=== PATIENT | male | born 1950 | race Hispanic/Latino ===

== ENCOUNTER 2021-02-20 07:06 | Day surgery (SDC) | payer OTHER, MEDICARE ==
--- NOTE | 2021-02-14 10:48 | RAD REPORT ---
EXAM DESCRIPTION: Anamika Kapoor (2 Views)02/14/2021 10:42 am CLINICAL HISTORY: Preop for hernia repair COMPARISON: 2016 FINDINGS: The lungs appear clear of acute infiltrate. The heart is normal size IMPRESSION: No acute abnormalities displayed
[2021-02-14 10:58] LABS: Absolute Lymphocytes (CBC) 0.7 K/uL (0.7-4.9); Basophils % 0.4 % (0-1.3); Hematocrit 41.1 % (39.6-49.0); Lymphocytes % 16.8 % (15.3-44.8); MPV 8.6 fL (7.6-11.3); RBC Red Blood Cell Count 4.61 M/uL (4.33-5.43)
[2021-02-14 11:07] LABS: BUN Blood Urea Nitrogen 15 mg/dL (7-18); Bicarbonate 27 mmol/L (21-32); Glucose Level 125 mg/dL (74-106); Sodium Level 140 mmol/L (136-145)
--- NOTE | 2021-02-14 12:56 | EKG ---
Test Date: 2021-02-14 Test Time: 09:26:58 Plush Cutter: VALENTIN MEASUREMENT RESULTS: Intervals: Rate: 62 IL: 168 QRSD: 84 QT: 386 QTc: 391 [place]: P: 36 IL: 168 QRS: 55 T: 65 INTERPRETIVE STATEMENTS: Normal sinus rhythm Normal ECG No previous ECG available for comparison Electronically Signed On 02-14-21 12:56:11 CDT by Jorge Fuentes
[2021-02-20] MEDS ORDERED: Ringers Lactate 1,000 ML IV ONE (07:57)
[2021-02-20] MEDS ORDERED: CEFAZOLIN/SWI 1gm 1 GM/10 ML SYR ONE (07:58)
[2021-02-20] MEDS: BUPIVACAINE 0.5% PF 10 ML VIAL ONE ×2 (08:29→10:01)
[2021-02-20] MEDS ORDERED: MIDAZOLAM HCL 2 MG/2 ML INJ ONE (08:44)
[2021-02-20] MEDS ORDERED: FENTANYL CITR 100 MCG/2 ML ONE (08:44)
[2021-02-20] MEDS ORDERED: ROCURONIUM 50 MG/5 ML VIAL IV ONE (08:44)
[2021-02-20] MEDS ORDERED: propofoL 200 MG/20 ML VIAL IV ONE (08:44)
[2021-02-20] MEDS ORDERED: LIDOCAINE 1% MPF 5 ML VIAL ONE (08:44)
[2021-02-20] MEDS ORDERED: KETOROLAC 30 MG/ML INJ ONE (10:00)
[2021-02-20] MEDS ORDERED: ONDANSETRON 4 MG/2 ML VIAL ONE (10:20)
[2021-02-20] MEDS ORDERED: GLYCOPYRROLATE 0.2 MG/ML SYR ONE (10:21)
[2021-02-20] MEDS ORDERED: NEOSTIGMINE 1 MG/ML -5 ML ONE (10:21)
--- NOTE | 2021-02-20 10:26 | P.BOP ---
Preoperative diagnosis: bilateral tender inguinal hernias Postoperative diagnosis: same Primary procedure: Laparoscopic repair bilateral tender inguinal hernias with mesh Cook Syrup Maker: Leatha Fagan) Estimated blood loss: <10cc Specimen: none Findings: bilateral tender inguinal hernias Anesthesia: General Complications: None Implants: medium 3d mesh bilateral Transferred to: Recovery Room Condition: Good
[2021-02-20] MEDS ORDERED: Mastisol Adhesive Liq ONE (10:27)
[2021-02-20 11:14] VITALS: TEMP 96.1
[2021-02-20] MEDS ORDERED: TAMSULOSIN 0.4 MG SR CAP ONE (11:28)
[2021-02-20] MEDS ORDERED: CODEINE 30MG/APAP 300MG TAB ONE (11:28)
[2021-02-20 13:31] VITALS: BP 120/67
[2021-02-20 13:33] VITALS: O2SAT 96
== END 2021-02-20 12:10 | disposition home or self-care (01) ==
LOC: OR 07:06
PROVIDERS: ATTEND Surgery
PROC: 0YUA4JZ Supplement Bilateral Inguinal Region with Synthetic Substitute, Percutaneous Endoscopic Approach (ICD-10-PCS; principal; 2021-02-20 08:30)
DX: K40.20 Bilateral inguinal hernia, without obstruction or gangrene, not specified as recurrent (principal); E78.00 Pure hypercholesterolemia, unspecified; F41.9 Anxiety disorder, unspecified; C61 Malignant neoplasm of prostate; Z20.822 Contact with and (suspected) exposure to COVID-19
CPT/HCPCS: 93005; 85025; 80048; 36415; 71046; 49650; U0002; J2704; J3010; J2710; J0690; J7120; J2405; J2250

== ENCOUNTER 2021-05-11 11:24 | Emergency (ER) | payer OTHER, MEDICARE ==
--- OUTSIDE RECORDS SUMMARY | 2021-05-11 11:43 | XMS REPORT | Continuity of Care Document ---
:1950 Author Organization [facility] t Address [address] [place] [address] Care Team Providers Name Role Phone Joshu_P Attending Clinician Unavailable Joshu_P Admitting Clinician Unavailable Problems This patient has no known problems. Allergies, Adverse Reactions, Alerts This patient has no known allergies or adverse reactions. Medications Ordered Filled Start Stop Current Ordering Indication Dosage Frequency Signature Comments Components Source Medication Medication Date Date Medication? Clinician (SIG) Name Name Lorazepam Lorazepam Yes Wesley [address] [facility] Zocor Zocor Yes Wesley [address] [facility] Procedures This patient has no known procedures. Encounters Start End Encounter Admission Attending Care Care Encounter Source Date/Time Date/Time Type Type Clinicians Facility Department ID 2021-05-06 Outpatient Joshu_P [facility] [id number] [place] 01:05:[facility] 2021-04-04 2021-04-04 [facility] [id number] 2021-02-06 2021-02-06 [facility] [id number] [facility] 2021-02-06 2021-02-06 [facility] [id number] [facility] 2021-01-02 2021-01-02 [facility] [id number] [facility] 2020-10-06 2020-10-06 [facility] [id number] [facility] 2020-10-05 2020-10-05 [facility] [id number] [facility] 2020-10-03 2020-10-03 [facility] [id number] [facility] 2020-10-03 2020-10-03 [facility] [id number] [facility] 2020-08-03 2020-08-03 [facility] [id number] [facility] 2020-07-05 2020-07-05 [facility] [id number] [facility] 2020-07-01 2020-07-01 [facility] [id number] [facility] 2020-06-27 2020-06-27 [facility] [id number] [facility] 2020-06-27 2020-06-27 [facility] [id number] [facility] 2020-03-31 2020-03-31 [facility] [id number] [facility] 2020-03-31 2020-03-31 [facility] [id number] [facility] 2020-01-06 2020-01-06 [id number] [facility] [address] 14:10:00 14:10:00 [facility] 2019-12-30 2019-12-30 [id number] [facility] [address] 11:30:00 11:30:00 [facility] 2019-10-07 2019-10-07 [facility] [id number] [facility] [address] 08:25:00 08:25:00 [facility] ent Clinics Results This patient has no known results.
[2021-05-11 11:59] LABS: Absolute Lymphocytes (CBC) 0.9 K/uL (0.7-4.9); Basophils % 0.5 % (0-1.3); Hematocrit 41.6 % (39.6-49.0); Lymphocytes % 19.8 % (15.3-44.8); MPV 8.4 fL (7.6-11.3); RBC Red Blood Cell Count 4.68 M/uL (4.33-5.43)
--- NOTE | 2021-05-11 12:00 | RAD REPORT ---
EXAM DESCRIPTION: RAD - Chest Single View - 05/11/2021 11:53 am CLINICAL HISTORY: PAIN Chest pain. COMPARISON: Chest Pa And Lat (2 Views) dated 02/14/2021; Chest Pa And Lat (2 Views) dated 11/15/2015 FINDINGS: Portable technique limits examination quality. Mild linear atelectasis is seen in the right lung base. The lungs are otherwise grossly clear. The he art is normal in size. No displaced fractures.
[2021-05-11 12:12] LABS: ALT/SGPT 23 U/L (12-78); AST/SGOT 12 U/L (15-37); Albumin 3.5 g/dL (3.4-5.0); Alkaline Phosphatase 87 U/L (45-117); BUN Blood Urea Nitrogen 14 mg/dL (7-18); Bicarbonate 26 mmol/L (21-32); Bilirubin Direct 0.2 mg/dL (0-0.2); Bilirubin Total 0.7 mg/dL (0.2-1.0); Glucose Level 132 mg/dL (74-106); Magnesium 2.3 mg/dL (1.8-2.4); NT PRO-BNP 27 pg/mL (<125); Potassium 4.4 mmol/L (3.5-5.1); Protein, Total 6.9 g/dL (6.4-8.2); Sodium Level 141 mmol/L (136-145); Troponin (Emerg Dept Use Only) < 0.02 ng/mL (0.0-0.045)
--- NOTE | 2021-05-11 12:18 | RAD REPORT ---
EXAM DESCRIPTION: CT - Head Brain Wo Cont - 05/11/2021 11:58 am CLINICAL HISTORY: NUMBNESS COMPARISON: No comparisons TECHNIQUE: All CT scans are performed using dose optimization technique as appropriate and may inclu de automated exposure control or mA/KV adjustment according to patient size. FINDINGS: No intracranial hemorrhage, hydrocephalus or extra-axial fluid collection.No areas of brai n edema or evidence of midline shift. The paranasal sinuses and mastoids are clear. The calvarium is intact. IMPRESSION: No acute intracranial abnormality.
--- NOTE | 2021-05-11 13:06 | ER ---
Nurse's Notes [facility] Name: Karel Malik Age: 70 yrs Sex: Male : 1950 Arrival Date: 05/11/2021 Time: 11:25 Bed 5 Private MD: Wesley Garcia Diagnosis: Transient cerebral ischemic attack, unspecified Presentation: 05/11 11:36 Chief complaint: Patient states: woke up with right leg numbness, felt like it was iw asleep, is better now, sometimes has intermittent numbness in his right shoulder for past month , denies weakness. Coronavirus screen: At this time, the client does not indicate any symptoms associated with coronavirus-19. Ebola Screen: Patient negative for fever greater than or equal to 101.5 degrees Fahrenheit, and additional compatible Ebola Virus Disease symptoms Patient denies exposure to infectious person. Patient denies travel to an Ebola-affected area in the 21 days before illness onset. No symptoms or risks identified at this time. Initial Sepsis Screen: Does the patient meet any 2 criteria? No. Patient's initial sepsis screen is negative. Does the patient have a suspected source of infection? No. Patient's initial sepsis screen is negative. Risk Assessment: Do you want to hurt yourself or someone else? Patient reports no desire to harm self or others. Onset of symptoms was May 11, 2021. 11:36 Method Of Arrival: Ambulatory iw 11:36 Acuity: SHO 3 iw Triage Assessment: 11:45 General: Appears in no apparent distress. comfortable, Behavior is calm, cooperative, bp appropriate for age. Pain: Denies pain. EENT: No deficits noted. Neuro: Level of Consciousness is awake, alert, obeys commands, Oriented to Appropriate for age Moves all extremities. Full function Gait is steady. Cardiovascular: No deficits noted. Respiratory: No deficits noted. GI: No signs and/or symptoms were reported involving the gastrointestinal system. : No signs and/or symptoms were reported regarding the genitourinary system. Derm: No deficits noted. Musculoskeletal: Reports weakness in right leg NOW RESOLVED. Historical: - Allergies: 11:38 No Known Allergies; iw - PMHx: 11:38 Hypercholesterolemia; iw - PSHx: 11:38 hernia; iw - Immunization history:: Client reports receiving the 2nd dose of the Covid vaccine. - Social history:: Smoking status: Patient denies any tobacco usage or history of. Screenin:45 Abuse screen: Denies threats or abuse. Denies injuries from another. Nutritional bp screening: No deficits noted. Tuberculosis screening: No symptoms or risk factors identified. Fall Risk None identified. Assessment: 11:45 General: SEE TRIAGE NOTE. bp 12:46 Reassessment: No changes from previously documented assessment. Patient and/or family bp updated on plan of care and expected duration. Pain level reassessed. ALL CURRENT ORDERS COMPLETE. 13:20 Reassessment: PT D/C HOME AMBULATORY WITH FAMILY, DX WITH TIA. bp Vital Signs: 11:36 BP 125 / 72; Pulse 71; Resp 16; Temp 98.2; Pulse Ox 96% on R/A; Weight 66.22 kg; Height iw 5 ft. 3 in. (160.02 cm); 12:45 BP 115 / 69; Pulse 64; Resp 16; Pulse Ox 96% ; bp 13:20 BP 124 / 78; Pulse 62; Resp 17; Pulse Ox 96% ; bp 11:36 Body Mass Index 25.86 (66.22 kg, 160.02 cm) iw NIH Stroke Scale Scores: 11:47 NIHSS Score: 0 jr8 ED Course: 11:25 Patient arrived in ED. am2 11:26 Wesley Garcia DO is Private Physician. am2 11:29 Christophe Burns PA is PHCP. jr8 11:29 Obdulio Zhang MD is Attending Physician. jr8 11:38 Triage completed. iw 11:39 Arm band placed on. iw 11:44 Avery Moran, MIR is Primary Nurse. bp 11:45 Patient has correct armband on for positive identification. Allergy band placed. Call bp light in reach. Side rails up X 1. 11:45 Inserted saline lock: 20 gauge in right forearm, using aseptic technique. Blood bp collected. 11:54 XRAY Chest (1 view) In Process Unspecified. EDMS 11:57 CT Head Brain wo Cont In Process Unspecified. EDMS 12:57 Basic Metabolic Panel Sent. bp 13:05 Fred Alvarenga MD is Referral Physician. jr8 13:20 No provider procedures requiring assistance completed. IV discontinued, intact, bp bleeding controlled, No redness/swelling at site. Pressure dressing applied. Administered Medications: No medications were administered Outcome: 13:05 Discharge ordered by MD. garcia 13:20 Discharged to home ambulatory, with family. bp 13:20 Condition: stable 13:20 Discharge instructions given to patient, Instructed on discharge instructions, follow up and referral plans. Demonstrated understanding of instructions, follow-up care. 13:21 Patient left the ED. bp NIH Stroke Scale - NIH Stroke Score Date: 05/11/2021 Time: 11:47 Total Score = 0 1a. Level of Consciousness (LOC) - 0(Alert) 1b. Level of Consciousness (LOC) (Month \T\ Age) - 0(Both) 1c. LOC Commands (Open \T\ Closes Eyes/Hub Associate) - 0(Both) 2. Best Gaze (Lateral Gaze Paresis) - 0(Normal) 3. Visual Field Loss - 0(No visual loss) 4. Facial Palsy - 0(Normal) 5a. Left Arm: Motor (10-second hold) - 0(No drift) 5b. Right Arm: Motor (10-second hold) - 0(No drift) 6a. Left Leg: Motor (5-second hold - always test supine) - 0(No drift) 6b. Right Leg: Motor (5-second hold - always test supine) - 0(No drift) 7. Limb Ataxia (finger/nose \T\ heel/hsieh - test with eyes open) - 0(Absent) 8. Sensory Loss (pinprick arms/legs/face) - 0(Normal) 9. Best Language: Aphasia (description/naming/reading) - 0(No aphasia) 10. Dysarthria (speech clarity - read or repeat words) - 0(Normal) 11. Extinction and Inattention (visual/tactile/auditory/spatial/personal) - 0(No abnormality) Initials: radha Signatures: Dispatcher [employer] Valentina Don RN RN iw Roszak, Josh, PA PA jrJami Sheridan am2 Avery Moran RN RN bp
--- NOTE | 2021-05-11 13:06 | EDPHYS ---
Physician Documentation [facility] Name: Karel Malik Age: 70 yrs Sex: Male : 1950 Arrival Date: 05/11/2021 Time: 11:25 Bed 5 Private MD: [facility] ED Physician Obdulio Zhang HPI: 05/11 11:47 This 70 yrs old Male presents to ER via Ambulatory with complaints of Numbness jr8 Of Arm - right, Numbness - right leg. 11:47 This is a 70-year-old male patient that presented to the emergency room with complaints jr8 of right arm numbness and right leg numbness. Patient stated for the past 3 weeks when he wakes up from sleeping his right arm feels numb and his fingers will be contracted. Patient stated once he starts to move his arm gets better. This morning though he started to have right leg numbness as well. Denies weakness or any other focal symptoms at this time.. Historical: - Allergies: 11:38 No Known Allergies; iw - PMHx: 11:38 Hypercholesterolemia; iw - PSHx: 11:38 hernia; iw - Immunization history:: Client reports receiving the 2nd dose of the Covid vaccine. - Social history:: Smoking status: Patient denies any tobacco usage or history of. ROS: 11:47 Eyes: Negative for injury, pain, redness, and discharge, ENT: Negative for injury, jr8 pain, and discharge, Neck: Negative for injury, pain, and swelling, Cardiovascular: Negative for chest pain, palpitations, and edema, Respiratory: Negative for shortness of breath, cough, wheezing, and pleuritic chest pain, Abdomen/GI: Negative for abdominal pain, nausea, vomiting, diarrhea, and constipation, Back: Negative for injury and pain, MS/Extremity: Negative for injury and deformity, Skin: Negative for injury, rash, and discoloration. 11:47 Neuro: Positive for numbness, of the right arm and right leg. Exam: 11:47 Constitutional: This is a well developed, well nourished patient who is awake, alert, jr8 and in no acute distress. Cardiovascular: Regular rate and rhythm with a normal S1 and S2. No gallops, murmurs, or rubs. Normal PMI, no JVD. No pulse deficits. Respiratory: Lungs have equal breath sounds bilaterally, clear to auscultation and percussion. No rales, rhonchi or wheezes noted. No increased work of breathing, no retractions or nasal flaring. Abdomen/GI: Soft, non-tender, with normal bowel sounds. No distension or tympany. No guarding or rebound. No evidence of tenderness throughout. Skin: Warm, dry with normal turgor. Normal color with no rashes, no lesions, and no evidence of cellulitis. MS/ Extremity: Pulses equal, no cyanosis. Neurovascular intact. Full, normal range of motion. Neuro: Awake and alert, GCS 15, oriented to person, place, time, and situation. Cranial nerves II-XII grossly intact. Motor strength 5/5 in all extremities. Sensory grossly intact. Cerebellar exam normal. Normal gait. Vital Signs: 11:36 BP 125 / 72; Pulse 71; Resp 16; Temp 98.2; Pulse Ox 96% on R/A; Weight 66.22 kg; Height iw 5 ft. 3 in. (160.02 cm); 12:45 BP 115 / 69; Pulse 64; Resp 16; Pulse Ox 96% ; bp 13:20 BP 124 / 78; Pulse 62; Resp 17; Pulse Ox 96% ; bp 11:36 Body Mass Index 25.86 (66.22 kg, 160.02 cm) iw NIH Stroke Scale Scores: 11:47 NIHSS Score: 0 jr8 MDM: 11:29 Patient medically screened. 8 13:04 Data reviewed: vital signs, nurses notes, lab test result(s), EKG, radiologic studies, [facility] CT scan, plain films. Data interpreted: Pulse oximetry: on room air is 96 %. Interpretation: normal. Counseling: I had a detailed discussion with the patient and/or guardian regarding: the historical points, exam findings, and any diagnostic results supporting the discharge/admit diagnosis, lab results, radiology results, the need for outpatient follow up, a neurologist, to return to the emergency department if symptoms worsen or persist or if there are any questions or concerns that arise at home. ED course: Discussed with patient and significant other that he is hemodynamically stable. No acute focal neurologic findings on physical exam. CT unremarkable. EKG and blood work unremarkable. Recommended following up with neurology as this still could have possibly been a transient ischemic attack since there was right leg involvement with the right arm today. Will start patient on low-dose aspirin in the meantime and needs to continue that until neurology says otherwise. Knows to come back if something were to worsen or if he were to become symptomatic again. Patient and family good with this at this time.. 05/11 11:35 Order name: Basic Metabolic Panel [facility] 05/11 11:35 Order name: CBC with Diff; Complete Time: 12:02 [facility] 05/11 11:35 Order name: LFT's; Complete Time: 12:17 [facility] 05/11 11:35 Order name: Magnesium; Complete Time: 12:17 [facility] 05/11 11:35 Order name: NT PRO-BNP; Complete Time: 12:17 [facility] 05/11 11:35 Order name: PT-INR; Complete Time: 11:58 [facility] 05/11 11:35 Order name: Troponin (emerg Dept Use Only); Complete Time: 12: [facility] 05/11 11:35 Order name: XRAY Chest (1 view); Complete Time: 12:02 [facility] 05/11 11:35 Order name: EKG; Complete Time: 11:35 [facility] 05/11 11:35 Order name: Cardiac monitoring; Complete Time: 12:22 [facility] 05/11 11:35 Order name: EKG - Nurse/Tech; Complete Time: 12:22 [facility] 05/11 11:35 Order name: IV Saline Lock; Complete Time: 12:22 [facility] 05/11 11:35 Order name: CT Head Brain wo Cont; Complete Time: 12:21 [facility] 05/11 11:35 Order name: Basic Metabolic Panel; Complete Time: 12:17 [facility] 05/11 11:35 Order name: Labs collected and sent; Complete Time: 12:22 [facility] 05/11 11:35 Order name: O2 Per Protocol; Complete Time: 12:22 [facility] 05/11 11:35 Order name: O2 Sat Monitoring; Complete Time: 12:22 [facility] Administered Medications: No medications were administered Disposition: 17:24 Co-signature as Attending Physician, Obdulio Zhang MD I agree with the assessment and kdr plan of care. Disposition Summary: 05/11/21 13:05 Discharge Ordered Location: Home [facility] Problem: new jr8 Symptoms: have improved jr8 Condition: Stable jr8 Diagnosis - Transient cerebral ischemic attack, unspecified jr8 Followup: jr8 - With: Fred Alvarenga MD - When: 5 - 6 days - Reason: Recheck today's complaints, Continuance of care, Re-evaluation by your physician Discharge Instructions: - Discharge Summary Sheet jr8 - Transient Ischemic Attack jr8 Forms: - Medication Reconciliation Form jr8 - Thank You Letter jr8 - Antibiotic Education jr8 - Prescription Opioid Use jr8 NIH Stroke Scale - NIH Stroke Score Date: 05/11/2021 Time: 11:47 Total Score = 0 1a. Level of Consciousness (LOC) - 0(Alert) 1b. Level of Consciousness (LOC) (Month \T\ Age) - 0(Both) 1c. LOC Commands (Open \T\ Closes Eyes/Cafeteria Worker) - 0(Both) 2. Best Gaze (Lateral Gaze Paresis) - 0(Normal) 3. Visual Field Loss - 0(No visual loss) 4. Facial Palsy - 0(Normal) 5a. Left Arm: Motor (10-second hold) - 0(No drift) 5b. Right Arm: Motor (10-second hold) - 0(No drift) 6a. Left Leg: Motor (5-second hold - always test supine) - 0(No drift) 6b. Right Leg: Motor (5-second hold - always test supine) - 0(No drift) 7. Limb Ataxia (finger/nose \T\ heel/hsieh - test with eyes open) - 0(Absent) 8. Sensory Loss (pinprick arms/legs/face) - 0(Normal) 9. Best Language: Aphasia (description/naming/reading) - 0(No aphasia) 10. Dysarthria (speech clarity - read or repeat words) - 0(Normal) 11. Extinction and Inattention (visual/tactile/auditory/spatial/personal) - 0(No abnormality) Initials: jr8 Signatures: Dispatcher [employer] EDObdulio Duggan MD MD kdr Valentina Perez RN RN Christophe Beltre PA PA jr8
[2021-05-11 13:40] VITALS: TEMP 98.2; O2SAT 96
[2021-05-11 13:43] VITALS: BP 124/78
--- NOTE | 2021-05-12 13:20 | EKG ---
Test Date: 2021-05-11 Test Time: 12:07:56 Clinical Program Director: BP MEASUREMENT RESULTS: Intervals: Rate: 64 DE: 156 QRSD: 72 QT: 382 QTc: 394 [place]: P: 34 DE: 156 QRS: 60 T: 66 INTERPRETIVE STATEMENTS: Normal sinus rhythm Normal ECG Compared to ECG 02/14/2021 09:26:58 No significant changes Electronically Signed On 05-12-21 13:16:34 [employer] by Jorge Fuentes
== END 2021-05-11 13:21 | disposition home or self-care (01) ==
LOC: ER 11:24
DX: G45.9 Transient cerebral ischemic attack, unspecified (principal)
CPT/HCPCS: 36415; 70450; 71045; 80048; 80076; 83735; 83880; 84484; 85025; 85610; 93005; 99283

== ENCOUNTER 2023-08-28 06:08 | Observation (INO) | payer OTHER, MEDICARE ==
[2023-08-27 10:23] LABS: Absolute Eosinophils 0.1 K/uL (0-0.5); Absolute Lymphocytes (CBC) 0.8 K/uL (0.7-4.9); Absolute Monocytes 0.5 K/uL (0.1-1.3); Absolute Neutrophil 3.8 K/uL (1.8-8.0); Basophils % 0.4 % (0-1.3); Eosinophils % 2.7 % (0-4.4); Hematocrit 42.5 % (39.6-49.0); Hemoglobin 14.5 g/dL (13.6-17.9); Lymphocytes % 15.1 % (15.3-44.8); MCH 29.9 pg (27.0-35.0); MCHC 34.1 g/dL (32.0-36.0); MCV 87.8 fL (80-100); MPV 8.4 fL (7.6-11.3); Neutrophils % 71.8 % (41.7-73.7); Nucleated Red Blood Cells % 0.1 % (0-0); Platelets 205 thou/uL (152-406); RBC Red Blood Cell Count 4.84 M/uL (4.33-5.43); Red Cell Distribution Width 14.1 % (12.1-15.2)
[2023-08-27 10:29] LABS: Anion Gap 6.7 mEq/L (5.0-15.0); Potassium 4.7 mEq/L (3.5-5.1)
[2023-08-27 10:30] LABS: PT Prothrombin Time 11.4 SECONDS (9.5-12.5); PTT, Activated Partial Thromb 35.1 SECONDS (24.3-36.9); Protime INR 1.04
[2023-08-28] MEDS: Ringers Lactate 1,000 ML IV ONE (06:30)
[2023-08-28] MEDS: EPINEPHRINE 1 MG/ML VIAL ONE (06:33)
[2023-08-28] MEDS: FENTANYL CITR 100 MCG/2 ML ONE (06:33)
[2023-08-28] MEDS: DEXMEDETOMIDINE HCL 200 MCG/2 ML VIAL ONE (06:34)
[2023-08-28] MEDS: MIDAZOLAM HCL 2 MG/2 ML INJ ONE (06:34)
[2023-08-28] MEDS: dexAMETHasone 4 MG/ML VIAL ONE (06:34)
[2023-08-28] MEDS: MAGNESIUM SULFATE 1 gm IVPB 1 GM/100 ML BAG IV ONE (06:35)
[2023-08-28] MEDS: GABAPENTIN 100 MG CAP ONE (06:35)
[2023-08-28] MEDS: BUPIVACAINE 0.25% PF 30 ML VIAL ONE (06:35)
[2023-08-28] MEDS: Oxycodone HCl/Acetaminophen 5/325 MG TAB ONE (06:35)
[2023-08-28] MEDS: ACETAMINOPHEN 500 MG TAB ONE (06:35)
[2023-08-28] MEDS: CELECOXIB 100 MG CAPSULE ONE (06:35)
[2023-08-28] MEDS: TRANEXAMIC ACID 1,000 MG/10 ML VIAL IV ONE (07:38)
[2023-08-28] MEDS ORDERED: propofoL 200 MG/20 ML VIAL IV ONE (07:40)
[2023-08-28] MEDS ORDERED: LIDOCAINE 2% MPF 5 ML VIAL ONE (07:40)
[2023-08-28] MEDS ORDERED: KETAMINE HCL IN 0.9 % NACL 50 MG/5 ML SYRINGE IV ONE (07:42)
[2023-08-28] MEDS: CEFAZOLIN SODIUM 1 GM/VIAL ONE (08:00)
[2023-08-28] MEDS ORDERED: dexAMETHasone 4 MG/ML VIAL ONE (08:32)
[2023-08-28] MEDS ORDERED: ONDANSETRON 4 MG/2 ML VIAL ONE (08:32)
[2023-08-28] MEDS ORDERED: KETOROLAC 30 MG/ML INJ ONE (08:43)
--- NOTE | 2023-08-28 10:48 | P.BOP ---
Preoperative diagnosis: left knee osteoarthritis Postoperative diagnosis: same Primary procedure: left total knee arthroplasty Manufacturing Applications Engineer: NONE,NONE Estimated blood loss: 50 cc Specimen: left knee bone remnants Findings: see dictation Anesthesia: General Complications: None Implants: Biomet Narda Persona 9 CR femur, G tibia, 10 CR poly, 29 patella Fluids & blood products: per anesthesia record; TT: 67 mins @ 300 mmHg Transferred to: Recovery Room Condition: Good
[2023-08-28] MEDS ORDERED: ONDANSETRON 4 MG/2 ML VIAL IV PRN (10:51)
[2023-08-28] MEDS ORDERED: ACETAMINOPHEN 325 MG TABLET PO PRN (10:51)
[2023-08-28] MEDS ORDERED: DOCUSATE NA 100 MG CAP PO PRN (10:51)
[2023-08-28] MEDS ORDERED: TRAMADOL HCL 50 MG TAB PO PRN (10:54)
[2023-08-28] MEDS: EPHEDRINE SULF 50 MG/ML VIAL ONE (10:56)
--- NOTE | 2023-08-28 11:01 | P.OP ---
Preoperative diagnosis: left knee osteoarthritis Postoperative diagnosis: same Primary procedure: left total knee arthroplasty Anesthesia: general Estimated blood loss: 50 cc Specimen: left knee bone remnants Findings: see dictation Operative Technique: Indication For Procedure: Karel is a 72 year-old female presenting to my clinic with signs, symptoms and x-ray findings consistent with severe left knee osteoarthritis. I discussed with the patient at length risks and benefits associated with operative and nonoperative treatment. He had failed conservative treatment measures and had significant difficulties with ADLs secondary to him pain. We discussed operative treatment and elected to proceed with left total knee arthroplasty. He expressed understanding and elected to proceed with operative treatment. Description Of Procedure: After informed consent was obtained, the patient was identified in the preoperative holding area. The left lower extremity was marked. The patient was then taken to the PACU where he underwent a left lower extremity adductor canal block performed by Anesthesia. He was then taken to the operating room, transferred to the operating table in supine fashion, and placed under general anesthesia. The left lower extremity was then prepped and draped in usual sterile fashion. A time-out was initiated. The correct patient and procedure were confirmed and identified. The patient did receive his preoperative prophylactic antibiotics. The left lower extremity was then exsanguinated and tourniquet was inflated to 300 mmHg. Approximately 15 cm longitudinal incision was made centered over the anterior aspect of the left knee. Dissection was then taken to the extensor mechanism and a medial parapatellar arthrotomy was performed. The patella was everted and dislocated laterally and the knee was flexed in the fat pad. Medial and lateral meniscus and ACL were all excised exposing the distal femur. Excess hypertrophic synoviu m was also excised within the suprapatellar pouch. The patient had an MRI of his left knee preoperatively for surgical planning and creation of cutting blocks. The cutting block was then placed over the distal femur and pins were then placed. The distal femoral cutting block was then placed over the pins. An fredy wing was then used to ensure proper depth cut and the distal femur was then cut. The chamfer cutting guide was then placed over the distal end of the femur. Anterior, posterior cuts as well as anterior and posterior chamfer cuts were then made again confirming proper depth of the cut using an Fredy wing. Excess bone remnants were then sent to pathology for further evaluation. Next, attention was taken to the proximal tibia. A tibial jig and tibial cutting block was then placed on proximal aspect of the left tibia and locked into position. Pins were then placed and alignment guide was then used to confirm proper alignment of the cut and then coronal and sagittal planes. Once this was confirmed, the cutting jig was placed over the pins and the proximal tibia was cut. Sizing trays were then selected and size 10 mm spacer was used and there was good overall balance in flexion and extension. Next, the trial implants were then placed using the size 9 standard CR femur and a size G tibia and an 10 mm CR poly. There was overall good range of motion and good stability. The trial implants were then removed. The wound was then irrigated thoroughly with normal saline and the knee was then injected with 30 cc of 0.5% Marcaine both in the posterior capsule and medial and lateral gutters as well as quadriceps tendon and periosteum. The tibia was then punched. The femur was drilled. The cement was then prepared on the back table. Cement was then placed first on the tibial surface followed by size G tibia. Excess cement was removed with Frontenac elevators. Size 9 standard CR femur was then placed on the distal femur after cement was placed on the distal femur. Excess cement was then removed and a size 10 mm CR trial poly was then placed. The knee was held in extension as the cement hardened. Undersurface of the patella was prepared debriding osteophytes using rongeurs as well as osteophytes. Cement was placed on the undersurface of the patella after it was cut and a size 29 patella was placed. Once the cement was hardened, the knee was ranged, there was good overall stability both in flexion, extension and as well as stability with varus and valgus stresses. Trial poly was then removed and a size 10 mm CR poly was then placed and locked into position. The knee was then ranged again. There was good overall range of motion both for flexion and extension with good stability. The wound was then irrigated again thoroughly with normal saline using pulse lavage. Tourniquet was let down. Hemostasis was achieved using Bovie electrocautery. Extensor mechanism was then approximated using a #1 Vicryl both in interrupted and running fashion. The fascia was then approximated using 0 Vicryl. Subcutaneous tissue was approximated with a 2-0 Vicryl. Skin was approximated using bret. Sterile dressings were applied. The patient was awakened and transferred to PACU in stable condition Complications: None Implants: Biomet Narda persona 9 CR femur, G tibia, 29 patella, 10 CR poly Fluids & blood products: per anesthesia record; TT: 67 mins @ 300 mmHg Transferred to: Recovery Room Condition: Good
[2023-08-28 11:15] LABS: Hematocrit 37.2 % (39.6-49.0); Hemoglobin 12.6 g/dL (13.6-17.9)
--- OUTSIDE RECORDS SUMMARY | 2023-08-28 11:56 | XMS REPORT | Continuity of Care Document ---
Author Name Unknown Address [address] [facility] [address] [place] [address] [facility] thconnect Address [address] [facility] [address] [place] [address] Care Team Providers Care Garment Worker Name Role Phone Wesley Garcia Attending Clinician Unavailable Jos Mattson Attending Clinician Unavailable Jos Mattson Attending Clinician Unavailable Beti_Radha Attending Clinician Unavailable Jos Mattson Admitting Clinician Unavailable Nimesh Admitting Clinician Unavailable Payers Payer Name Policy Type Policy Number Effective Date Expirati on Date Source [place] [id number] 2020 00:00:00 [facility] C1 [id number] [facility] MEDICARE [place] [id number] [facility] MEDICARE [place] MB [id number] [facility] AAR C1 [id number] [facility] MEDICARE [place] MB [id number] [facility] AAR C1 [id number] [facility] AAR C1 [id number] [facility] MEDICARE [facility] MB [id number] [facility] AARP C1 [id number] [facility] MEDICARE [facility] [id number] [facility] Problems Condition Name Condition Details Condition Category Status Onset Date Resolution Date Last Treatment Date Treating Clinician Comments Source [id number] Primary osteoarthr itis of left knee Problem [facility] [id number] Malignant neoplasm of prostate Problem [facility] [id number] Mood disorder Problem [facility] Solitary nodule of lung Lung nodule Problem [facility] [id number] History of prostate cancer Problem [facility] [id number] Non-season al allergic rhinitis, unspecifie d trigger Problem [facility] [id number] Panic attack Problem [facility] [id number] Generalize d anxiety disorder Problem [facility] [id number] Insomnia, unspecifie d type Problem [facility] [id number] Mixed hyperlipid emia Problem [facility] [id number] Benzodiaze pine dependence , continuous Problem [facility] [id number] Arthritis of left knee Problem [facility] Social History Social Habit Start Date Stop Date Quantity Comments Source History of Tobacco Use [facility] Sex Assigned At [facility] Smoking Status Start Date Stop Date Source Never Smoker [facility] Former Smoker 2022-07-05 00:00:00 2022-07-05 00:00:00 [facility] Medications Ordered Medication Name Filled Medication Name Start Date Stop Date Current Medication? Ordering Clinician Indication Dosage Frequency Signature (SIG) Comments Components Source Xarelto 10 MG Xarelto 10 MG - 00:00: 00 No 1{table t} QD Xarelto 10 MG HYDROcodone -Acetaminop hen 7.5-325 MG HYDROcodone -Acetaminop hen 7.5-325 MG - 00:00: 00 No 1{table t_as_ne eded} QID HYDROcodon e-Acetamin ophen 7.5-325 MG Xarelto 10 MG Xarelto 10 MG 2024-0 3-04 00:00: 00 No 1{table t} QD Xarelto 10 MG HYDROcodone -Acetaminop hen 7.5-325 MG HYDROcodone -Acetaminop hen 7.5-325 MG 2024-0 3-04 00:00: 00 No 1{table t_as_ne eded} QID HYDROcodon e-Acetamin ophen 7.5-325 MG LORazepam 1 MG LORazepam 1 MG 2024-0 1-24 00:00: 00 No 1{table t_at_be dtime_a s_neede d} LORazepam 1 MG LORazepam 1 MG LORazepam 1 MG 2024-0 1-24 00:00: 00 No 1{table t_at_be dtime_a s_neede d} LORazepam 1 MG LORazepam 1 MG LORazepam 1 MG 2024-0 1-24 00:00: 00 No 1{table t_at_be dtime_a s_neede d} LORazepam 1 MG LORazepam 1 MG LORazepam 1 MG 4-0 1-24 00:00: 00 No 1{table t_at_be dtime_a s_neede d} LORazepam 1 MG LORazepam 1 MG LORazepam 1 MG 4-0 1-24 00:00: 00 No 1{table t_at_be dtime_a s_neede d} LORazepam 1 MG LORazepam 1 MG LORazepam 1 MG 4-0 1-24 00:00: 00 No 1{table t_at_be dtime_a s_neede d} LORazepam 1 MG Meloxicam 7.5 MG Meloxicam 7.5 MG 3-1 1- 00:00: 00 No 1{table t} QD Meloxicam 7.5 MG Meloxicam 7.5 MG Meloxicam 7.5 MG 3-1 1- 00:00: 00 No 1{table t} QD Meloxicam 7.5 MG LORazepam 1 MG LORazepam 1 MG 3-1 0- 00:00: 00 No 1{table t_at_be dtime_a s_neede d} LORazepam 1 MG LORazepam 1 MG LORazepam 1 MG 2022- 00:00: 00 No 1{table t_at_be dtime_a s_neede d} LORazepam 1 MG LORazepam 1 MG LORazepam 1 MG 2022- 00:00: 00 No 1{table t_at_be dtime_a s_neede d} LORazepam 1 MG LORazepam 1 MG LORazepam 1 MG 2022- 00:00: 00 No 1{table t_at_be dtime_a s_neede d} LORazepam 1 MG LORazepam 1 MG LORazepam 1 MG 2022- 00:00: 00 No 1{table t_at_be dtime_a s_neede d} LORazepam 1 MG LORazepam 1 MG LORazepam 1 MG 2022- 00:00: 00 No 1{table t_at_be dtime_a s_neede d} LORazepam 1 MG LORazepam 1 MG LORazepam 1 MG 2022- 00:00: 00 No 1{table t_at_be dtime_a s_neede d} LORazepam 1 MG LORazepam 1 MG LORazepam 1 MG 2022- 00:00: 00 No 1{table t_at_be dtime_a s_neede d} LORazepam 1 MG LORazepam 1 MG LORazepam 1 MG 2022- 00:00: 00 No 1{table t_at_be dtime_a s_neede d} LORazepam 1 MG LORazepam 1 MG LORazepam 1 MG 2022- 00:00: 00 No 1{table t_at_be dtime_a s_neede d} LORazepam 1 MG LORazepam 1 MG LORazepam 1 MG 2022-06 00:00: 00 No 1{table t_at_be dtime_a s_neede d} LORazepam 1 MG Bupivicaine Lyman Bupivicaine Lyman 01-15 00:00: 00 No 4mL [facility] Kenalog (Triamcinol one) Kenalog (Triamcinol one) 01-15 00:00: 00 No 1mL [facility] Bupivicaine Lyman Bupivicaine Lyman 01-15 00:00: 00 No 4mL [facility] Kenalog (Triamcinol one) Kenalog (Triamcinol one) 01-15 00:00: 00 No 1mL [facility] Bupivicaine Lyman Bupivicaine Lyman 01-15 00:00: 00 No 4mL [facility] Kenalog (Triamcinol one) Kenalog (Triamcinol one) 01-15 00:00: 00 No 1mL [facility] Bupivicaine Lyman Bupivicaine Lyman 01-15 00:00: 00 No 4mL [facility] Kenalog (Triamcinol one) Kenalog (Triamcinol one) 01-15 00:00: 00 No 1mL [facility] Bupivicaine Lyman Bupivicaine Lyman 01-15 00:00: 00 No 4mL [facility] Kenalog (Triamcinol one) Kenalog (Triamcinol one) 01-15 00:00: 00 No 1mL [facility] Bupivicaine Lyman Bupivicaine Lyman 01-15 00:00: 00 No 4mL [facility] Kenalog (Triamcinol one) Kenalog (Triamcinol one) 01-15 00:00: 00 No 1mL [facility] Bupivicaine Lyman Bupivicaine Lyman 01-15 00:00: 00 No 4mL [facility] Kenalog (Triamcinol one) Kenalog (Triamcinol one) 01-15 00:00: 00 No 1mL [facility] Bupivicaine Lyman Bupivicaine Lyman 01-15 00:00: 00 No 4mL [facility] Kenalog (Triamcinol one) Kenalog (Triamcinol one) 01-15 00:00: 00 No 1mL [facility] Bupivicaine Lyman Bupivicaine Lyman 01-15 00:00: 00 No 4mL [facility] Kenalog (Triamcinol one) Kenalog (Triamcinol one) 01-15 00:00: 00 No 1mL [facility] Bupivicaine Lyman Bupivicaine Lyman 01-15 00:00: 00 No 4mL [facility] Kenalog (Triamcinol one) Kenalog (Triamcinol one) 01-15 00:00: 00 No 1mL [facility] Bupivicaine Lyman Bupivicaine Lyman 01-15 00:00: 00 No 4mL [facility] Kenalog (Triamcinol one) Kenalog (Triamcinol one) 01-15 00:00: 00 No 1mL [facility] Bupivicaine Lyman Bupivicaine Lyman 01-15 00:00: 00 No 4mL [facility] Kenalog (Triamcinol one) Kenalog (Triamcinol one) 01-15 00:00: 00 No 1mL [facility] Bupivicaine Lyman Bupivicaine Lyman 01-15 00:00: 00 No 4mL [facility] Kenalog (Triamcinol one) Kenalog (Triamcinol one) 01-15 00:00: 00 No 1mL [facility] Bupivicaine Lyman Bupivicaine Lyman 01-15 00:00: 00 No 4mL [facility] Kenalog (Triamcinol one) Kenalog (Triamcinol one) 01-15 00:00: 00 No 1mL [facility] Bupivicaine Lyman Bupivicaine Lyman 0 01-15 00:00: 00 No 4mL [facility] Kenalog (Triamcinol one) Kenalog (Triamcinol one) 01-15 00:00: 00 No 1mL [facility] Bupivicaine Lyman Bupivicaine Lyman 0 01-15 00:00: 00 No 4mL [facility] Kenalog (Triamcinol one) Kenalog (Triamcinol one) 0 01-15 00:00: 00 No 1mL [facility] Bupivicaine Lyman Bupivicaine Lyman 0 01-15 00:00: 00 No 4mL [facility] Kenalog (Triamcinol one) Kenalog (Triamcinol one) 01-15 00:00: 00 No 1mL [facility] LORazepam 1 MG LORazepam 1 MG 1- 00:00: 00 No 1{table t_at_be dtime_a s_neede d} LORazepam 1 MG LORazepam 1 MG LORazepam 1 MG 2021-06 0 00:00: 00 No 1{table t_at_be dtime_a s_neede d} LORazepam 1 MG LORazepam 1 MG LORazepam 1 MG 0 01-09 00:00: 00 No 1{table t_at_be dtime_a s_neede d} LORazepam 1 MG Lidocaine Lidocaine 11-23 00:00: 00 No 10mg [facility] Celestone Soluspan (Betamethas one) Celestone Soluspan (Betamethas one) 0 6 00:00: 00 No 6mg [facility] Lidocaine Lidocaine 0 6 00:00: 00 No 10mg [facility] Celestone Soluspan (Betamethas one) [place] Soluspan (Betamethas one) 0 6- 00:00: 00 No 6mg [facility] Lidocaine Lidocaine 0 11-23 00:00: 00 No 10mg [facility] [place] Soluspan (Betamethas one) [place] Soluspan (Betamethas one) 0 11-23 00:00: 00 No 6mg [facility] Lidocaine Lidocaine 0 11-23 00:00: 00 No 10mg [facility] Celestone Soluspan (Betamethas one) [place] Soluspan (Betamethas one) 0 11-23 00:00: 00 No 6mg [facility] [place] Soluspan (Betamethas one) [place] Soluspan (Betamethas one) 0 11-23 00:00: 00 No 6mg [facility] Lidocaine Lidocaine 0 11-23 00:00: 00 No 10mg [facility] [place] Soluspan (Betamethas one) [place] Soluspan (Betamethas one) 0 11-23 00:00: 00 No 6mg [facility] Lidocaine Lidocaine 0 11-23 00:00: 00 No 10mg [facility] [place] Soluspan (Betamethas one) [place] Soluspan (Betamethas one) 0 11-23 00:00: 00 No 6mg [facility] Lidocaine Lidocaine 0 11-23 00:00: 00 No 10mg [facility] [place] Soluspan (Betamethas one) [place] Soluspan (Betamethas one) 0 11-23 00:00: 00 No 6mg [facility] Lidocaine Lidocaine 0 11-23 00:00: 00 No 10mg [facility] [place] Soluspan (Betamethas one) [place] Soluspan (Betamethas one) 0 11-23 00:00: 00 No 6mg [facility] Lidocaine Lidocaine 0 11-23 00:00: 00 No 10mg [facility] [place] Soluspan (Betamethas one) [place] Soluspan (Betamethas one) 0 11-23 00:00: 00 No 6mg [facility] Lidocaine Lidocaine 0 11-23 00:00: 00 No 10mg [facility] [place] Soluspan (Betamethas one) [place] Soluspan (Betamethas one) 0 11-23 00:00: 00 No 6mg [facility] Lidocaine Lidocaine 0 11-23 00:00: 00 No 10mg [facility] [place] Soluspan (Betamethas one) [place] Soluspan (Betamethas one) 0 11-23 00:00: 00 No 6mg [facility] Lidocaine Lidocaine 0 11-23 00:00: 00 No 10mg [facility] [place] Soluspan (Betamethas one) [place] Soluspan (Betamethas one) 0 11-23 00:00: 00 No 6mg [facility] Lidocaine Lidocaine 0 11-23 00:00: 00 No 10mg [facility] [place] Soluspan (Betamethas one) [place] Soluspan (Betamethas one) 0 11-23 00:00: 00 No 6mg [facility] Lidocaine Lidocaine 0 11-23 00:00: 00 No 10mg [facility] [place] Soluspan (Betamethas one) [place] Soluspan (Betamethas one) 0 11-23 00:00: 00 No 6mg [facility] Lidocaine Lidocaine 0 11-23 00:00: 00 No 10mg [facility] [place] Soluspan (Betamethas one) Celestone Soluspan (Betamethas one) 0 11-23 00:00: 00 No 6mg [facility] Lidocaine Lidocaine 0 - 00:00: 00 No 10mg [facility] Celestone Soluspan (Betamethas one) Celestone Soluspan (Betamethas one) 0 - 00:00: 00 No 6mg [facility] Lidocaine Lidocaine 0 - 00:00: 00 No 10mg [facility] Celestone Soluspan (Betamethas one) Celestone Soluspan (Betamethas one) 0 - 00:00: 00 No 6mg [facility] Lidocaine Lidocaine 0 11-23 00:00: 00 No 10mg [facility] [place] Soluspan (Betamethas one) Cel[place] Soluspan (Betamethas one) 0 - 00:00: 00 No 6mg [facility] Lidocaine Lidocaine 0 - 00:00: 00 No 10mg [facility] Celestone Soluspan (Betamethas one) Celestone Soluspan (Betamethas one) 0 11-23 00:00: 00 No 6mg [facility] Lidocaine Lidocaine 0 - 00:00: 00 No 10mg [facility] [place] Soluspan (Betamethas one) Celestone Soluspan (Betamethas one) 0 - 00:00: 00 No 6mg [facility] Lidocaine Lidocaine 0 - 00:00: 00 No 10mg [facility] Bupivicaine Lyman Bupivicaine Lyman 0 - 00:00: 00 No 2.5mg [facility] Kenalog (Triamcinol one) Kenalog (Triamcinol one) 2021-0 - 00:00: 00 No 40mg [facility] Bupivicaine Lyman Bupivicaine Lyman 0 10-30 00:00: 00 No 2.5mg [facility] Kenalog (Triamcinol one) Kenalog (Triamcinol one) 0 10-30 00:00: 00 No 40mg [facility] Bupivicaine Lyman Bupivicaine Lyman 0 10-30 00:00: 00 No 2.5mg [facility] Kenalog (Triamcinol one) Kenalog (Triamcinol one) 0 10-30 00:00: 00 No 40mg [facility] Bupivicaine Lyman Bupivicaine Lyman 0 10-30 00:00: 00 No 2.5mg [facility] Kenalog (Triamcinol one) Kenalog (Triamcinol one) 0 10-30 00:00: 00 No 40mg [facility] Bupivicaine Lyman Bupivicaine Lyman 0 10-30 00:00: 00 No 2.5mg [facility] Kenalog (Triamcinol one) Kenalog (Triamcinol one) 0 10-30 00:00: 00 No 40mg [facility] Bupivicaine Lyman Bupivicaine Lyman 0 10-30 00:00: 00 No 2.5mg [facility] Kenalog (Triamcinol one) Kenalog (Triamcinol one) 0 10-30 00:00: 00 No 40mg [facility] Bupivicaine Lyman Bupivicaine Lyman 0 10-30 00:00: 00 No 2.5mg [facility] Kenalog (Triamcinol one) Kenalog (Triamcinol one) 0 10-30 00:00: 00 No 40mg [facility] Bupivicaine Lyman Bupivicaine Lyman 0 - 00:00: 00 No 2.5mg [facility] Kenalog (Triamcinol one) Kenalog (Triamcinol one) 0 10-30 00:00: 00 No 40mg [facility] Bupivicaine Lyman Bupivicaine Lyman 0 10-30 00:00: 00 No 2.5mg [facility] Kenalog (Triamcinol one) Kenalog (Triamcinol one) 0 10-30 00:00: 00 No 40mg [facility] Bupivicaine Lyman Bupivicaine Lyman 0 10-30 00:00: 00 No 2.5mg [facility] Kenalog (Triamcinol one) Kenalog (Triamcinol one) 0 10-30 00:00: 00 No 40mg [facility] Bupivicaine Lyman Bupivicaine Lyman 0 10-30 00:00: 00 No 2.5mg [facility] Kenalog (Triamcinol one) Kenalog (Triamcinol one) 0 10-30 00:00: 00 No 40mg [facility] Bupivicaine Lyman Bupivicaine Lyman 0 10-30 00:00: 00 No 2.5mg [facility] Kenalog (Triamcinol one) Kenalog (Triamcinol one) 0 10-30 00:00: 00 No 40mg [facility] Bupivicaine Lyman Bupivicaine Lyman 0 10-30 00:00: 00 No 2.5mg [facility] Kenalog (Triamcinol one) Kenalog (Triamcinol one) 0 10-30 00:00: 00 No 40mg [facility] Bupivicaine Lyman Bupivicaine Lyman 0 10-30 00:00: 00 No 2.5mg [facility] Kenalog (Triamcinol one) Kenalog (Triamcinol one) 0 - 00:00: 00 No 40mg [facility] Bupivicaine Lyman Bupivicaine Lyman 0 10-30 00:00: 00 No 2.5mg [facility] Kenalog (Triamcinol one) Kenalog (Triamcinol one) 0 10-30 00:00: 00 No 40mg [facility] Bupivicaine Lyman Bupivicaine Lyman 0 10-30 00:00: 00 No 2.5mg [facility] Kenalog (Triamcinol one) Kenalog (Triamcinol one) 0 10-30 00:00: 00 No 40mg [facility] Bupivicaine Lyman Bupivicaine Lyman 0 10-30 00:00: 00 No 2.5mg [facility] Kenalog (Triamcinol one) Kenalog (Triamcinol one) 0 10-30 00:00: 00 No 40mg [facility] Bupivicaine Lyman Bupivicaine Lyman 0 10-30 00:00: 00 No 2.5mg [facility] Kenalog (Triamcinol one) Kenalog (Triamcinol one) 0 10-30 00:00: 00 No 40mg [facility] Bupivicaine Lyman Bupivicaine Lyman 0 10-30 00:00: 00 No 2.5mg [facility] Kenalog (Triamcinol one) Kenalog (Triamcinol one) 0 10-30 00:00: 00 No 40mg [facility] Bupivicaine Lyman Bupivicaine Lyman 0 10-30 00:00: 00 No 2.5mg [facility] Kenalog (Triamcinol one) Kenalog (Triamcinol one) 0 10-30 00:00: 00 No 40mg [facility] Bupivicaine Lyman Bupivicaine Lyman 0 - 00:00: 00 No 2.5mg [facility] Kenalog (Triamcinol one) Kenalog (Triamcinol one) - 00:00: 00 No 40mg [facility] Bupivicaine Lyman Bupivicaine Lyman - 00:00: 00 No 2.5mg [facility] Kenalog (Triamcinol one) Kenalog (Triamcinol one) - 00:00: 00 No 40mg [facility] LORazepam 1 MG LORazepam 1 MG 07-10 00:00: 00 No 1{table t_at_be dtime_a s_neede d} LORazepam 1 MG LORazepam 1 MG LORazepam 1 MG - 00:00: 00 No 1{table t_at_be dtime_a s_neede d} LORazepam 1 MG LORazepam 1 MG LORazepam 1 MG 07-10 00:00: 00 No 1{table t_at_be dtime_a s_neede d} LORazepam 1 MG LORazepam 1 MG LORazepam 1 MG 2021-0 -17 00:00: 00 No 1{table t_at_be dtime_a s_neede d} LORazepam 1 MG LORazepam 1 MG LORazepam 1 MG -17 00:00: 00 No 1{table t_at_be dtime_a s_neede d} LORazepam 1 MG LORazepam 1 MG LORazepam 1 MG 2020-06-12 00:00: 00 No 1{table t_at_be dtime_a s_neede d} LORazepam 1 MG LORazepam 1 MG LORazepam 1 MG 2020- 0-12 00:00: 00 No 1{table t_at_be dtime_a s_neede d} LORazepam 1 MG LORazepam 1 MG LORazepam 1 MG 2020- 0-12 00:00: 00 No 1{table t_at_be dtime_a s_neede d} LORazepam 1 MG Lorazepam Lorazepam Yes Wesley Garcia 1 tablet at bedtime as needed [facility] Zocor Zocor Yes Wesley Garcia 1 tablet in the evening [facility] Simvastatin 20 MG Simvastatin 20 MG No Simvastati n 20 MG Simvastatin 20 MG Simvastatin 20 MG No Simvastati n 20 MG Zocor 20 MG Zocor 20 MG No 1{table t_in_th e_eveni ng} QD Zocor 20 MG Zocor 20 MG Zocor 20 MG No 1{table t_in_th e_eveni ng} QD Zocor 20 MG Simvastatin 20 MG Simvastatin 20 MG No Simvastati n 20 MG Zocor 20 MG Zocor 20 MG No 1{table t_in_th e_eveni ng} QD Zocor 20 MG Zocor 20 MG Zocor 20 MG No 1{table t_in e_eveni ng} QD Zocor 20 MG Simvastatin 20 MG Simvastatin 20 MG No Simvastati n 20 MG Zocor 20 MG Zocor 20 MG No 1{table t_in e_eveni ng} QD Zocor 20 MG Zocor 20 MG Zocor 20 MG No 1{table t_in_ e_eveni ng} QD Zocor 20 MG Zocor 20 MG Zocor 20 MG No 1{table t_in e_eveni ng} QD Zocor 20 MG Zocor 20 MG Zocor 20 MG No 1{table t_in e_eveni ng} QD Zocor 20 MG Simvastatin 20 MG Simvastatin 20 MG No Simvastati n 20 MG Simvastatin 20 MG Simvastatin 20 MG No Simvastati n 20 MG Zocor 20 MG Zocor 20 MG No 1{table t_in e_eveni ng} QD Zocor 20 MG Zocor 20 MG Zocor 20 MG No 1{table t_in_th e_eveni ng} QD Zocor 20 MG Simvastatin 20 MG Simvastatin 20 MG No Simvastati n 20 MG Zocor 20 MG Zocor 20 MG No 1{table t_in_ e_eveni ng} QD Zocor 20 MG Zocor 20 MG Zocor 20 MG No 1{table t_in_th e_eveni ng} QD Zocor 20 MG Doxycycline Hyclate 100 MG Doxycycline Hyclate 100 MG No 1{capsu le} QD Doxycyclin e Hyclate 100 MG Simvastatin 20 MG Simvastatin 20 MG No Simvastati n 20 MG Zocor 20 MG Zocor 20 MG No 1{table t_in e_eveni ng} QD Zocor 20 MG Zocor 20 MG Zocor 20 MG No 1{table t_in e_eveni ng} QD Zocor 20 MG Zocor 20 MG Zocor 20 MG No 1{table t_in e_eveni ng} QD Zocor 20 MG Zocor 20 MG Zocor 20 MG No 1{table t_in e_eveni ng} QD Zocor 20 MG Doxycycline Hyclate 100 MG Doxycycline Hyclate 100 MG No 1{capsu le} QD Doxycyclin e Hyclate 100 MG Simvastatin 20 MG Simvastatin 20 MG No Simvastati n 20 MG Simvastatin 20 MG Simvastatin 20 MG No Simvastati n 20 MG Zocor 20 MG Zocor 20 MG No 1{table t_in e_eveni ng} QD Zocor 20 MG Simvastatin 20 MG Simvastatin 20 MG No Simvastati n 20 MG Zocor 20 MG Zocor 20 MG No 1{table t_in e_eveni ng} QD Zocor 20 MG Zocor 20 MG Zocor 20 MG No 1{table t_in e_eveni ng} QD Zocor 20 MG Simvastatin 20 MG Simvastatin 20 MG No Simvastati n 20 MG Meloxicam 7.5 MG Meloxicam 7.5 MG No Meloxicam 7.5 MG Zocor 20 MG Zocor 20 MG No 1{table t_in e_eveni ng} QD Zocor 20 MG Simvastatin 20 MG Simvastatin 20 MG No Simvastati n 20 MG Meloxicam 7.5 MG Meloxicam 7.5 MG No Meloxicam 7.5 MG Zocor 20 MG Zocor 20 MG No 1{table t_in e_eveni ng} QD Zocor 20 MG Simvastatin 20 MG Simvastatin 20 MG No Simvastati n 20 MG Meloxicam 7.5 MG Meloxicam 7.5 MG No Meloxicam 7.5 MG Zocor 20 MG Zocor 20 MG No 1{table t_in e_eveni ng} QD Zocor 20 MG Simvastatin 20 MG Simvastatin 20 MG No Simvastati n 20 MG Meloxicam 7.5 MG Meloxicam 7.5 MG No Meloxicam 7.5 MG Zocor 20 MG Zocor 20 MG No 1{table t_in e_eveni ng} QD Zocor 20 MG Simvastatin 20 MG Simvastatin 20 MG No Simvastati n 20 MG Meloxicam 7.5 MG Meloxicam 7.5 MG No Meloxicam 7.5 MG Zocor 20 MG Zocor 20 MG No 1{table t_in e_eveni ng} QD Zocor 20 MG Simvastatin 20 MG Simvastatin 20 MG No Simvastati n 20 MG Meloxicam 7.5 MG Meloxicam 7.5 MG No Meloxicam 7.5 MG Zocor 20 MG Zocor 20 MG No 1{table t_in e_eveni ng} QD Zocor 20 MG Simvastatin 20 MG Simvastatin 20 MG No Simvastati n 20 MG Meloxicam 7.5 MG Meloxicam 7.5 MG No Meloxicam 7.5 MG Zocor 20 MG Zocor 20 MG No 1{table t_in e_eveni ng} QD Zocor 20 MG LORazepam 1 MG LORazepam 1 MG No 1{table t_at_ dtime_a s_neede d} LORazepam 1 MG Zocor 20 MG Zocor 20 MG No 1{table t_in e_eveni ng} QD Zocor 20 MG Simvastatin 20 MG Simvastatin 20 MG No Simvastati n 20 MG Meloxicam 7.5 MG Meloxicam 7.5 MG No Meloxicam 7.5 MG Zocor 20 MG Zocor 20 MG No 1{table t_in e_eveni ng} QD Zocor 20 MG Zocor 20 MG Zocor 20 MG No 1{table t_in e_eveni ng} QD Zocor 20 MG Simvastatin 20 MG Simvastatin 20 MG No Simvastati n 20 MG Meloxicam 7.5 MG Meloxicam 7.5 MG No Meloxicam 7.5 MG Zocor 20 MG Zocor 20 MG No 1{table t_in e_eveni ng} QD Zocor 20 MG Zocor 20 MG Zocor 20 MG No 1{table t_in e_eveni ng} QD Zocor 20 MG Simvastatin 20 MG Simvastatin 20 MG No Simvastati n 20 MG LORazepam 1 MG LORazepam 1 MG No 1{table t_at_be dtime_a s_neede d} LORazepam 1 MG Zocor 20 MG Zocor 20 MG No 1{table t_in e_eveni ng} QD Zocor 20 MG Zocor 20 MG Zocor 20 MG No 1{table t_in e_eveni ng} QD Zocor 20 MG Simvastatin 20 MG Simvastatin 20 MG No Simvastati n 20 MG Zocor 20 MG Zocor 20 MG No 1{table t_in e_eveni ng} QD Zocor 20 MG Simvastatin 20 MG Simvastatin 20 MG No Simvastati n 20 MG Zocor 20 MG Zocor 20 MG No 1{table t_in e_eveni ng} QD Zocor 20 MG Simvastatin 20 MG Simvastatin 20 MG No Simvastati n 20 MG Zocor 20 MG Zocor 20 MG No 1{table t_in e_eveni ng} QD Zocor 20 MG Simvastatin 20 MG Simvastatin 20 MG No Simvastati n 20 MG Zocor 20 MG Zocor 20 MG No 1{table t_in e_eveni ng} QD Zocor 20 MG Simvastatin 20 MG Simvastatin 20 MG No Simvastati n 20 MG Zocor 20 MG Zocor 20 MG No 1{table t_in e_eveni ng} QD Zocor 20 MG Zocor 20 MG Zocor 20 MG No 1{table t_in e_eveni ng} QD Zocor 20 MG Simvastatin 20 MG Simvastatin 20 MG No Simvastati n 20 MG Zocor 20 MG Zocor 20 MG No 1{table t_in e_eveni ng} QD Zocor 20 MG Zocor 20 MG Zocor 20 MG No 1{table t_in e_eveni ng} QD Zocor 20 MG Simvastatin 20 MG Simvastatin 20 MG No Simvastati n 20 MG Zocor 20 MG Zocor 20 MG No 1{table t_in_th e_eveni ng} QD Zocor 20 MG Zocor 20 MG Zocor 20 MG No 1{table t_in_th e_eveni ng} QD Zocor 20 MG Immunizations Ordered Immunization Name Filled Immunization Name Date Status Comments Source FluAD FluAD 2021-03-03 11:29:00 Completed [facility] FluAD FluAD 2021-03-03 11:29:00 Completed [facility] FluAD FluAD 2021-03-03 11:29:00 Completed [facility] FluAD FluAD 2021-03-03 11:29:00 Completed [facility] FluAD FluAD 2021-03-03 11:29:00 Completed [facility] FluAD FluAD 2021-03-03 11:29:00 Completed [facility] FluAD FluAD 2021-03-03 11:29:00 Completed [facility] FluAD FluAD 2021-03-03 11:29:00 Completed [facility] FluAD FluAD 2021-03-03 11:29:00 Completed [facility] FluAD FluAD 2021-03-03 11:29:00 Completed [facility] FluAD FluAD 2021-03-03 11:29:00 Completed [facility] FluAD FluAD 2020-02-25 13:06:00 Completed [facility] FluAD FluAD 2020-02-25 13:06:00 Completed [facility] FluAD FluAD 2020-02-25 13:06:00 Completed [facility] FluAD FluAD 2020-02-25 13:06:00 Completed [facility] FluAD FluAD 2020-02-25 13:06:00 Completed [facility] FluAD FluAD 2020-02-25 13:06:00 Completed [facility] FluAD FluAD 2020-02-25 13:06:00 Completed [facility] FluAD FluAD 2020-02-25 13:06:00 Completed [facility] FluAD FluAD 2020-02-25 13:06:00 Completed [facility] FluAD FluAD 2020-02-25 13:06:00 Completed [facility] FluAD FluAD 2020-02-25 13:06:00 Completed [facility] FluAD FluAD 2020-02-25 13:06:00 Completed [facility] FluAD FluAD 2020-02-25 13:06:00 Completed [facility] FluAD FluAD Unknown Completed [facility] FluAD FluAD Unknown Completed [facility] FluAD FluAD Unknown Completed [facility] FluAD FluAD Unknown Completed [facility] FluAD FluAD Unknown Completed [facility] Flu[facility] FluAD Unknown Completed [facility] FluAD FluAD Unknown Completed [facility] FluAD FluAD Unknown Completed [facility] FluAD FluAD Unknown Completed [facility] FluAD FluAD Unknown Completed [facility] FluAD FluAD Unknown Completed [facility] FluAD FluAD Unknown Completed [facility] FluAD FluAD Unknown Completed [facility] FluAD FluAD Unknown Completed [facility] FluAD FluAD Unknown Completed [facility] FluAD FluAD Unknown Completed [facility] FluAD FluAD Unknown Completed [facility] FluAD FluAD Unknown Completed [facility] FluAD FluAD Unknown Completed [facility] FluAD FluAD Unknown Completed [facility] FluAD FluAD Unknown Completed [facility] FluAD FluAD Unknown Completed [facility] FluAD FluAD Unknown Completed [facility] FluAD FluAD Unknown Completed [facility] FluAD FluAD Unknown Completed [facility] FluAD FluAD Unknown Completed [facility] FluAD FluAD Unknown Completed [facility] FluAD FluAD Unknown Completed [facility] FluAD FluAD Unknown Completed [facility] FluAD FluAD Unknown Completed [facility] FluAD FluAD Unknown Completed [facility] FluAD FluAD Unknown Completed [facility] FluAD FluAD Unknown Completed [facility] FluAD FluAD Unknown Completed [facility] Vital Signs Vital Name Observation Time Observation Value Comments S ource height 2023-08-22 15:00:00 63 [in_i] Commo n [facility] weight 2023-08-22 15:00:00 152 [lb_av] Comm on [facility] temperature 2023-08-22 15:00:00 98.30 [degF] Co mmon [facility] bmi 2023-08-22 15:00:00 26.92 kg/m2 Comm on [facility] blood pressure systolic 2023-08-22 15:00:00 122 mm[Hg] Common [facility] blood pressure diastolic 2023-08-22 15:00:00 70 mm[Hg] Common [facility] height 2023-07-17 14:20:00 63 [in_i] Commo n [facility] weight 2023-07-17 14:20:00 152 [lb_av] Comm on [facility] temperature 2023-07-17 14:20:00 97.7 [degF] Com mon [facility] bmi 2023-07-17 14:20:00 26.92 kg/m2 Comm on [facility] oximetry 2023-07-17 14:20:00 95 % Commo n [facility] blood pressure systolic 2023-07-17 14:20:00 124 mm[Hg] [facility] blood pressure diastolic 2023-07-17 14:20:00 62 mm[Hg] [facility] height 2023-04-25 14:30:00 63 [in_i] Commo n [facility] weight 2023-04-25 14:30:00 149 [lb_av] Comm on [facility] temperature 2023-04-25 14:30:00 97.8 [degF] Com mon [facility] bmi 2023-04-25 14:30:00 26.39 kg/m2 Comm on [facility] blood pressure systolic 2023-04-25 14:30:00 128 mm[Hg] [facility] blood pressure diastolic 2023-04-25 14:30:00 82 mm[Hg] [facility] height 2023-04-15 14:30:00 63 [in_i] Commo n [facility] weight 2023-04-15 14:30:00 149.0 [lb_av] Co mmon [facility] temperature 2023-04-15 14:30:00 98.0 [degF] Com mon [facility] bmi 2023-04-15 14:30:00 26.39 kg/m2 Comm on [facility] oximetry 2023-04-15 14:30:00 97 % Commo n [facility] respiratory rate 2023-04-15 14:30:00 17 /min Common [facility] blood pressure systolic 2023-04-15 14:30:00 121 mm[Hg] [facility] blood pressure diastolic 2023-04-15 14:30:00 64 mm[Hg] [facility] height 2023-01-15 14:30:00 63 [in_i] Commo n [facility] weight 2023-01-15 14:30:00 149 [lb_av] Comm on [facility] temperature 2023-01-15 14:30:00 98.4 [degF] Com [facility] bmi 2023-01-15 14:30:00 26.39 kg/m2 Comm on [facility] blood pressure systolic 2023-01-15 14:30:00 136 mm[Hg] [facility] blood pressure diastolic 2023-01-15 14:30:00 84 mm[Hg] [facility] height 2023-01-11 10:30:00 63 [in_i] Commo n [facility] weight 2023-01-11 10:30:00 148.0 [lb_av] Co mmon [facility] temperature 2023-01-11 10:30:00 97.3 [degF] Com [facility] bmi 2023-01-11 10:30:00 26.21 kg/m2 Comm on [facility] oximetry 2023-01-11 10:30:00 99 % Commo n [facility] respiratory rate 2023-01-11 10:30:00 18 /min [facility] blood pressure systolic 2023-01-11 10:30:00 120 mm[Hg] [facility] blood pressure diastolic 2023-01-11 10:30:00 68 mm[Hg] [facility] height 2022-09-25 13:10:00 63 [in_i] Commo n [facility] weight 2022-09-25 13:10:00 149.4 [lb_av] Co mmon [facility] temperature 2022-09-25 13:10:00 97.5 [degF] Com [facility] bmi 2022-09-25 13:10:00 26.46 kg/m2 Comm on [facility] oximetry 2022-09-25 13:10:00 97 % Commo n [facility] respiratory rate 2022-09-25 13:10:00 16 /min [facility] blood pressure systolic 2022-09-25 13:10:00 135 mm[Hg] [facility] blood pressure diastolic 2022-09-25 13:10:00 72 mm[Hg] [facility] height 2022-09-25 13:20:00 63 [in_i] Commo n [facility] weight 2022-09-25 13:20:00 149.4 [lb_av] Co [facility] temperature 2022-09-25 13:20:00 97.5 [degF] Com [facility] bmi 2022-09-25 13:20:00 26.46 kg/m2 Comm on [facility] oximetry 2022-09-25 13:20:00 97 % Commo n [facility] respiratory rate 2022-09-25 13:20:00 16 /min [facility] blood pressure systolic 2022-09-25 13:20:00 135 mm[Hg] Common [facility] blood pressure diastolic 2022-09-25 13:20:00 72 mm[Hg] Common [facility] height 2022-07-17 14:10:00 63 [in_i] Commo n [facility] weight 2022-07-17 14:10:00 150.2 [lb_av] Co [facility] temperature 2022-07-17 14:10:00 97.3 [degF] Com [facility] bmi 2022-07-17 14:10:00 26.6 kg/m2 Commo n [facility] oximetry 2022-07-17 14:10:00 97 % Commo n [facility] respiratory rate 2022-07-17 14:10:00 17 /min Common [facility] blood pressure systolic 2022-07-17 14:10:00 137 mm[Hg] Common [facility] blood pressure diastolic 2022-07-17 14:10:00 69 mm[Hg] [facility] height 2022-04-11 14:10:00 63 [in_i] Commo n [facility] weight 2022-04-11 14:10:00 149.6 [lb_av] Co mmon [facility] temperature 2022-04-11 14:10:00 98.1 [degF] Com mon [facility] bmi 2022-04-11 14:10:00 26.5 kg/m2 Commo n [facility] oximetry 2022-04-11 14:10:00 97 % Commo n [facility] respiratory rate 2022-04-11 14:10:00 17 /min Common [facility] blood pressure systolic 2022-04-11 14:10:00 130 mm[Hg] [facility] blood pressure diastolic 2022-04-11 14:10:00 69 mm[Hg] [facility] height 2022-01-09 14:30:00 63 [in_i] Commo n [facility] weight 2022-01-09 14:30:00 150.6 [lb_av] Co mmon [facility] temperature 2022-01-09 14:30:00 98.2 [degF] Com mon [facility] bmi 2022-01-09 14:30:00 26.67 kg/m2 Comm on [facility] oximetry 2022-01-09 14:30:00 97 % Commo n [facility] respiratory rate 2022-01-09 14:30:00 17 /min [facility] blood pressure systolic 2022-01-09 14:30:00 132 mm[Hg] [facility] blood pressure diastolic 2022-01-09 14:30:00 63 mm[Hg] Common [facility] height 2021-11-23 08:45:00 63 [in_i] Commo n [facility] weight 2021-11-23 08:45:00 148 [lb_av] Comm on [facility] bmi 2021-11-23 08:45:00 26.21 kg/m2 Comm on [facility] blood pressure systolic 2021-11-23 08:45:00 116 mm[Hg] Common [facility] blood pressure diastolic 2021-11-23 08:45:00 68 mm[Hg] [facility] height 2021-10-30 14:00:00 63 [in_i] Commo n [facility] weight 2021-10-30 14:00:00 148 [lb_av] Comm on [facility] bmi 2021-10-30 14:00:00 26.21 kg/m2 Comm on [facility] blood pressure systolic 2021-10-30 14:00:00 138 mm[Hg] Common [facility] blood pressure diastolic 2021-10-30 14:00:00 74 mm[Hg] Common [facility] height 2021-10-10 15:50:00 63 [in_i] Commo n [facility] weight 2021-10-10 15:50:00 148.5 [lb_av] Co mmon [facility] temperature 2021-10-10 15:50:00 98.0 [degF] Com mon [facility] bmi 2021-10-10 15:50:00 26.3 kg/m2 Commo n [facility] oximetry 2021-10-10 15:50:00 97 % Commo n [facility] respiratory rate 2021-10-10 15:50:00 17 /min Common [facility] blood pressure systolic 2021-10-10 15:50:00 129 mm[Hg] [facility] blood pressure diastolic 2021-10-10 15:50:00 67 mm[Hg] Common [facility] height 2021-10-10 15:50:00 63 [in_i] Commo n [facility] weight 2021-10-10 15:50:00 148.5 [lb_av] Co mmon [facility] temperature 2021-10-10 15:50:00 98.0 [degF] Com mon [facility] bmi 2021-10-10 15:50:00 26.3 kg/m2 Commo n [facility] oximetry 2021-10-10 15:50:00 97 % Commo n [facility] respiratory rate 2021-10-10 15:50:00 17 /min [facility] blood pressure systolic 2021-10-10 15:50:00 129 mm[Hg] [facility] blood pressure diastolic 2021-10-10 15:50:00 67 mm[Hg] [facility] height 2021-07-10 13:50:00 63 [in_i] Commo n [facility] weight 2021-07-10 13:50:00 150.2 [lb_av] Co mmon [facility] temperature 2021-07-10 13:50:00 98.4 [degF] Com mon [facility] bmi 2021-07-10 13:50:00 26.6 kg/m2 Commo n [facility] oximetry 2021-07-10 13:50:00 97 % Commo n [facility] respiratory rate 2021-07-10 13:50:00 17 /min Common [facility] blood pressure systolic 2021-07-10 13:50:00 137 mm[Hg] [facility] blood pressure diastolic 2021-07-10 13:50:00 64 mm[Hg] Common [facility] height 2021-04-04 11:40:00 63 [in_i] Commo n [facility] weight 2021-04-04 11:40:00 143.7 [lb_av] Co mmon [facility] temperature 2021-04-04 11:40:00 97.4 [degF] Com [facility] bmi 2021-04-04 11:40:00 25.45 kg/m2 Comm on [facility] oximetry 2021-04-04 11:40:00 95 % Commo n [facility] respiratory rate 2021-04-04 11:40:00 17 /min Common [facility] blood pressure systolic 2021-04-04 11:40:00 127 mm[Hg] Common [facility] blood pressure diastolic 2021-04-04 11:40:00 65 mm[Hg] Common [facility] height 2021-02-06 10:10:00 63 [in_i] Commo n [facility] weight 2021-02-06 10:10:00 152.5 [lb_av] Co on [facility] temperature 2021-02-06 10:10:00 97.2 [degF] Com [facility] bmi 2021-02-06 10:10:00 27.01 kg/m2 Comm on [facility] oximetry 2021-02-06 10:10:00 96 % Commo n [facility] respiratory rate 2021-02-06 10:10:00 16 /min Common [facility] blood pressure systolic 2021-02-06 10:10:00 135 mm[Hg] [facility] blood pressure diastolic 2021-02-06 10:10:00 66 mm[Hg] [facility] Encounters Start Date/Time End Date/Time Encounter Type Admission Type Attending Clinicians Care Facility Care Department Encounter ID Source 2023-07-15 11:47:00 Outpatient Garcia, Wesley [facility] [id number] [facility] 2023-04-29 08:29:00 Outpatient Garcia, Wesley [facility] [id number] [facility] 2023-04-12 11:56:00 Outpatient Garcia, Wesley [facility] [id number] [facility] 2023-01-16 08:04:00 Outpatient Garcia, Wesley [facility] [id number] [facility] 2023-01-09 09:22:00 Outpatient Garcia, Wesley [facility] [id number] [facility] 2023-01-08 15:49:00 Outpatient Garcia, Wesley [facility] [id number] [facility] 2022-12-27 16:15:00 Outpatient Garcia, Wesley [facility] [id number] [facility] 2022-09-20 10:37:00 Outpatient Garcia, Wesley [facility] [id number] [facility] 2022-04-09 15:10:01 Outpatient Garcia, Wesley [facility] [id number] [facility] 2021-10-30 13:51:02 Outpatient Garcia, Wesley [facility] [id number] [facility] 2021-10-27 08:59:00 Outpatient Garcia, Wesley [facility] [id number] [facility] 2021-07-19 12:19:51 Outpatient Garcia, Wesley [facility] [id number] [facility] 2021-07-19 12:19:18 Outpatient Garcia, Wesley [facility] [id number] [facility] 2021-07-19 12:17:29 Outpatient Wesley Garcia [facility] [id number] [facility] 2021-07-19 11:17:26 Outpatient Wesley Garcia [facility] [id number] [facility] 2020-01-07 13:45:00 Inpatient 3 Jos Mattson Sanjay [facility] ROF [id number] [facility] 2023-08-26 00:00:00 2023-08-26 00:00:00 (TEL) STLMLC ST[facility]C [id number] [facility] 2023-08-22 00:00:00 2023-08-22 00:00:00 OFFICE VISIT ESTAB PT LEVEL 4 [facility] [id number] [facility] 2023-08-22 00:00:00 2023-08-22 00:00:00 (TEL) STLMLC ST[facility]C [id number] [facility] 2023-08-01 00:00:00 2023-08-01 00:00:00 (TEL) [facility]C ST[facility]C [id number] [facility] 2023-07-17 00:00:00 2023-07-17 00:00:00 OFFICE VISIT ESTAB PT LEVEL 4 [facility] [id number] [facility] 2023-06-04 00:00:00 2023-06-04 00:00:00 (TEL) STLMLC ST[facility]C [id number] [facility] 2023-06-03 00:00:00 2023-06-03 00:00:00 (TEL) ST[facility]C ST[facility]C [id number] [facility] 2023-04-25 00:00:00 2023-04-25 00:00:00 OFFICE VISIT ESTAB PT LEVEL 4 [facility] [id number] [facility] 2023-04-18 00:00:00 2023-04-18 00:00:00 (TEL) ST[facility]MLC ST[facility]C [id number] [facility] 2023-04-15 00:00:00 2023-04-15 00:00:00 OFFICE VISIT ESTAB PT LEVEL 4 [facility] ST[facility] [id number] [facility] 2023-03-06 00:00:00 2023-03-06 00:00:00 (TEL) STLMLC STL[facility]C [id number] [facility] 2023-01-17 00:00:00 2023-01-17 00:00:00 (TEL) ST[facility]C ST[facility]C [id number] [facility] 2023-01-15 00:00:00 2023-01-15 00:00:00 OFFICE VISIT ESTAB PT LEVEL 4 [facility] ST[facility] [id number] [facility] 2023-01-11 00:00:00 2023-01-11 00:00:00 OFFICE VISIT ESTAB PT LEVEL 4 [facility] ST[facility] [id number] [facility] 2022-12-21 00:00:00 2022-12-21 00:00:00 (TEL) ST[facility]MLC ST[facility]C [id number] [facility] 2022-09-25 00:00:00 2022-09-25 00:00:00 OFFICE VISIT ESTAB PT LEVEL 4 [facility] ST[facility] [id number] [facility] 2022-09-25 00:00:00 2022-09-25 00:00:00 SUB ANNUAL [facility] WELLNESS VISIT STLMLC STLMLC [id number] [facility] 2022-07-17 00:00:00 2022-07-17 00:00:00 OFFICE VISIT ESTAB PT LEVEL 4 [facility] ST[facility]C [id number] [facility] 2022-04-11 00:00:00 2022-04-11 00:00:00 OFFICE VISIT ESTAB PT LEVEL 4 [facility] ST[facility]C [id number] [facility] 2022-01-09 00:00:00 2022-01-09 00:00:00 OFFICE VISIT ESTAB PT LEVEL 4 [facility] ST[facility] [id number] [facility] 2021-11-23 00:00:00 2021-11-23 00:00:00 OFFICE VISIT EST PT LEVEL 3 [facility] ST[facility]C [id number] [facility] 2021-10-30 00:00:00 2021-10-30 00:00:00 OFFICE VISIT NEW PT LEVEL 4 [facility] ST[facility]C [id number] [facility] 2021-10-10 00:00:00 2021-10-10 00:00:00 OFFICE VISIT ESTAB PT LEVEL 4 [facility] ST[facility] [id number] [facility] 2021-10-10 00:00:00 2021-10-10 00:00:00 SUB ANNUAL [facility] WELLNESS VISIT [facility]C STLMLC [id number] [facility] 2021-07-10 00:00:00 2021-07-10 00:00:00 OFFICE VISIT EST PT LEVEL 3 [facility] ST[facility] [id number] [facility] 2021-05-16 00:00:00 2021-05-16 00:00:00 (TEL) STLMLC STLMLC [id number] [facility] 2021-05-11 00:00:00 2021-05-11 00:00:00 (TEL) STLMLC STL[facility]C [id number] [facility] 2021-04-04 00:00:00 2021-04-04 00:00:00 OFFICE VISIT ESTAB PT LEVEL 4 [facility] ST[facility] [id number] [facility] 2021-02-06 00:00:00 2021-02-06 00:00:00 (TEL) ST[facility]MLC STL[facility]C [id number] [facility] 2021-02-06 00:00:00 2021-02-06 00:00:00 OFFICE VISIT ESTAB PT LEVEL 4 [facility] ST[facility] [id number] [facility] 2021-01-02 00:00:00 2021-01-02 00:00:00 Outpatient [facility] [id number] [facility] 2020-10-06 00:00:00 2020-10-06 00:00:00 Outpatient [facility] ST[facility] [id number] [facility] 2020-10-05 00:00:00 2020-10-05 00:00:00 Outpatient [facility] ST[facility]C [id number] [facility] 2020-10-03 00:00:00 2020-10-03 00:00:00 Outpatient STLMLC STLMLC [id number] [facility] 2020-10-03 00:00:00 2020-10-03 00:00:00 Outpatient STLMLC STLMLC [id number] [facility] 2020-08-03 00:00:00 2020-08-03 00:00:00 Outpatient STLMLC STLMLC [id number] [facility] 2020-07-05 00:00:00 2020-07-05 00:00:00 Outpatient STLMLC STLMLC [id number] [facility] 2020-07-01 00:00:00 2020-07-01 00:00:00 Outpatient STLMLC STLMLC [id number] [facility] 2020-06-27 00:00:00 2020-06-27 00:00:00 Outpatient STLMLC STLMLC [id number] [facility] 2020-06-27 00:00:00 2020-06-27 00:00:00 Outpatient STLMLC STLMLC [id number] [facility] 2020-03-31 00:00:00 2020-03-31 00:00:00 Outpatient STLMLC STLMLC [id number] [facility] 2020-03-31 00:00:00 2020-03-31 00:00:00 Outpatient STLMLC STLMLC [id number] [facility] 2020-01-06 14:10:00 2020-01-06 14:10:00 [facility] [id number] [facility] 2019-12-30 11:30:00 2019-12-30 11:30:[address] [facility] [id number] [facility] 2019-10-07 08:25:00 2019-10-07 08:25:[address] [facility] [id number] [facility] 2019-09-21 05:07:00 2019-09-21 05:07:00 Outpatient [facility] [id number] [facility] Results Test Description Test Time Test Comments Results Result Co mments Source FASTING:[facility] W/AUTO [id number] 00:00:00* Test Item Value Reference Range Interpretation Comme nts NUCLEATED RBCS (test code = 34901-0) 0.0 /100 WBC'S See_Comment [Automated messa ge] The system which generated this result transmitted reference range: 0.0 /100 WBC'S. The reference range was not used to interpret this result as normal/abnormal. ABSOLUTE EOSINOPHILS (test code = 16244-0) 0.30 K/UL See_Comment [Automated messa ge] The system which generated this result transmitted reference range: 0.00-0.50 K/UL. The reference range was not used to interpret this result as normal/abnormal. ABSOLUTE LYMPHOCYTES (test code = 36221-0) 1.28 K/UL See_Comment [Automated messa ge] The system which generated this result transmitted reference range: 1.00-4.00 K/UL. The reference range was not used to interpret this result as normal/abnormal. ABSOLUTE MONOCYTES (test code = 66223-1) 0.68 K/UL See_Comment [Automated messa ge] The system which generated this result transmitted reference range: 0.20-1.00 K/UL. The reference range was not used to interpret this result as normal/abnormal. ABSOLUTE NEUTROPHILS (test code = 79659-8) 3.01 K/UL See_Comment [Automated messa ge] The system which generated this result transmitted reference range: 1.50-7.50 K/UL. The reference range was not used to interpret this result as normal/abnormal. BASOPHILS (test code = 92487-4) 0.4 % EOSINOPHILS (test code = 25298-3) 5.6 % HEMATOCRIT (test code = 06021-6) 42.6 % See_Comment [Automated messa ge] The system which generated this result transmitted reference range: 40.0-51.0 %. The reference range was not used to interpret this result as normal/abnormal. HEMOGLOBIN (test code = 718-7) 14.1 G/DL See_Comment [Automated messa ge] The system which generated this result transmitted reference range: 13.5-17.0 G/DL. The reference range was not used to interpret this result as normal/abnormal. LYMPHOCYTES (test code = 43971-4) 24.1 % MCH (test code = 20664-1) 29.9 PG See_Comment [Automated messa ge] The system which generated this result transmitted reference range: 25.0-33.0 PG. The reference range was not used to interpret this result as normal/abnormal. MCHC (test code = 22274-1) 33.1 G/DL See_Comment [Automated messa ge] The system which generated this result transmitted reference range: 31.0-36.0 G/DL. The reference range was not used to interpret this result as normal/abnormal. MCV (test code = 87656-6) 90.4 fL See_Comment [Automated messa ge] The system which generated this result transmitted reference range: 80.0-99.0 fL. The reference range was not used to interpret this result as normal/abnormal. MONOCYTES (test code = 77768-9) 12.8 % NEUTROPHILS (test code = 51135-8) 56.7 % PLATELET COUNT (test code = 46449-5) 208 K/UL See_Comment [Automated messa ge] The system which generated this result transmitted reference range: 130-400 K/UL. The reference range was not used to interpret this result as normal/abnormal. RBC (test code = 16174-6) 4.71 M/UL See_Comment [Automated messa ge] The system which generated this result transmitted reference range: 4.50-6.10 M/UL. The reference range was not used to interpret this result as normal/abnormal. RDW (test code = 38239-5) 12.7 % See_Comment [Automated messa ge] The system which generated this result transmitted reference range: 11.5-15.0 %. The reference range was not used to interpret this result as normal/abnormal. WBC (test code = 07441-0) 5.3 K/UL See_Comment [Automated messa ge] The system which generated this result transmitted reference range: 3.5-11.0 K/UL. The reference range was not used to interpret this result as normal/abnormal. BENZODIAZEPINE, QUANT, [id number] 00:00:00* Test Item Value Reference Range Interpretation Comme nts 7-AMINOCLONAZEPAM QNT (test code = 35757-4) <50 ng/mL See_Comment [Automated message] The system which generated this result transmitted reference range: <100 ng/mL. The reference range was not used to interpret this result as normal/abnormal. 7-AMINOFLUNITRAZEPAM QNT (test code = 46235-4) <50 ng/mL See_Comment [Automated message] The system which generated this result transmitted reference range: <100 ng/mL. The reference range was not used to interpret this result as normal/abnormal. HYDROXYALPRAZOLAM QNT (test code = 83091-4) <50 ng/mL See_Comment [Automated message] The system which generated this result transmitted reference range: <100 ng/mL. The reference range was not used to interpret this result as normal/abnormal. HYDROXYTRIAZOLAM QNT (test code = 83141-9) <50 ng/mL See_Comment [Automated message] The system which generated this result transmitted reference range: <100 ng/mL. The reference range was not used to interpret this result as normal/abnormal. LORAZEPAM QNT (test code = 39216-5) 1435 ng/mL See_Comment H [Automated message] The system which generated this result transmitted reference range: <100 ng/mL. The reference range was not used to interpret this result as normal/abnormal. NORDIAZEPAM QNT (test code = 80572-7) <50 ng/mL See_Comment [Automated message] The system which generated this result transmitted reference range: <100 ng/mL. The reference range was not used to interpret this result as normal/abnormal. FW-OPZPM-GUZSEPNXFN QNT (test code = 23669-5) <50 ng/mL See_Comment [Automated message] The system which generated this result transmitted reference range: <100 ng/mL. The reference range was not used to interpret this result as normal/abnormal. OXAZEPAM QNT (test code = 67946-2) <50 ng/mL See_Comment [Automated message] The system which generated this result transmitted reference range: <100 ng/mL. The reference range was not used to interpret this result as normal/abnormal. TEMAZEPAM QNT (test code = 86248-8) <50 ng/mL See_Comment [Automated message] The system which generated this result transmitted reference range: <100 ng/mL. The reference range was not used to interpret this result as normal/abnormal. LIPID PANEL WITH REFLEX DIRECT [id number] 00:00:00* Test Item Value Reference Range Interpretation Comme nts CALC LDL CHOL (test code = 16574-5) 70 MG/DL See_Comment [Automated messa ge] The system which generated this result transmitted reference range: <100 MG/DL. The reference range was not used to interpret this result as normal/abnormal. CHOLESTEROL (test code = 2093-3) 141 MG/DL See_Comment [Automated messa ge] The system which generated this result transmitted reference range: <200 MG/DL. The reference range was not used to interpret this result as normal/abnormal. HDL CHOLESTEROL (test code = 2085-9) 51 MG/DL See_Comment [Automated messa ge] The system which generated this result transmitted reference range: >39 MG/DL. The reference range was not used to interpret this result as normal/abnormal. RISK RATIO LDL/HDL (test code = 04270-8) 1.37 RATIO See_Comment [Automated message] The system which generated this result transmitted reference range: <3.55 RATIO. The reference range was not used to interpret this result as normal/abnormal. TRIGLYCERIDES (test code = 2571-8) 123 MG/DL See_Comment [Automated messa ge] The system which generated this result transmitted reference range: <150 MG/DL. The reference range was not used to interpret this result as normal/abnormal. COMPREHENSIVE METABOLIC [id number] 00:00:00* Test Item Value Reference Range Interpretation Comme nts ALBUMIN (test code = 1751-7) 4.5 G/DL See_Comment [Automated messa ge] The system which generated this result transmitted reference range: 3.5-5.2 G/DL. The reference range was not used to interpret this result as normal/abnormal. ALKALINE PHOSPHATASE (test code = 6768-6) 95 U/L See_Comment [Automated message] The system which generated this result transmitted reference range: 40-125 U/L. The reference range was not used to interpret this result as normal/abnormal. BILIRUBIN, TOTAL (test code = 1975-2) 0.4 MG/DL See_Comment [Automated message] The system which generated this result transmitted reference range: <=1.2 MG/DL. The reference range was not used to interpret this result as normal/abnormal. BUN (test code = 3094-0) 17 MG/DL See_Comment [Automated messa ge] The system which generated this result transmitted reference range: 8-23 MG/DL. The reference range was not used to interpret this result as normal/abnormal. CALCIUM (test code = 85750-6) 9.2 MG/DL See_Comment [Automated messa ge] The system which generated this result transmitted reference range: 8.5-10.5 MG/DL. The reference range was not used to interpret this result as normal/abnormal. CALC A/G RATIO (test code = 1759-0) 2.1 RATIO See_Comment [Automated messa ge] The system which generated this result transmitted reference range: 1.0-2.6 RATIO. The reference range was not used to interpret this result as normal/abnormal. CALC BUN/CREAT (test code = 3097-3) 19 RATIO See_Comment [Automated messa ge] The system which generated this result transmitted reference range: 6-28 RATIO. The reference range was not used to interpret this result as normal/abnormal. CALC GLOBULIN (test code = 17116-1) 2.1 G/DL See_Comment [Automated messa ge] The system which generated this result transmitted reference range: 1.9-3.7 G/DL. The reference range was not used to interpret this result as normal/abnormal. CARBON DIOXIDE (test code = 1963-8) 27 MEQ/L See_Comment [Automated messa ge] The system which generated this result transmitted reference range: 19-31 MEQ/L. The reference range was not used to interpret this result as normal/abnormal. CHLORIDE (test code = 2075-0) 103 MEQ/L See_Comment [Automated messa ge] The system which generated this result transmitted reference range: 95-107 MEQ/L. The reference range was not used to interpret this result as normal/abnormal. CREATININE (test code = 2160-0) 0.88 MG/DL See_Comment [Automated messa ge] The system which generated this result transmitted reference range: 0.80-1.40 MG/DL. The reference range was not used to interpret this result as normal/abnormal. eGFR (2020 CKD-EPI) (test code = 41322-1) 91 ML/MIN/1.73 See_Comment [Automated messa ge] The system which generated this result transmitted reference range: >60 ML/MIN/1.73. The reference range was not used to interpret this result as normal/abnormal. GLUCOSE (test code = 1558-6) 86 MG/DL See_Comment [Automated messa ge] The system which generated this result transmitted reference range: 70-99 MG/DL. The reference range was not used to interpret this result as normal/abnormal. POTASSIUM (test code = 2823-3) 4.3 MEQ/L See_Comment [Automated messa ge] The system which generated this result transmitted reference range: 3.5-5.4 MEQ/L. The reference range was not used to interpret this result as normal/abnormal. PROTEIN, TOTAL (test code = 2885-2) 6.6 G/DL See_Comment [Automated messa ge] The system which generated this result transmitted reference range: 6.1-8.3 G/DL. The reference range was not used to interpret this result as normal/abnormal. AST (test code = 1920-8) 16 U/L See_Comment [Automated messa ge] The system which generated this result transmitted reference range: 9-50 U/L. The reference range was not used to interpret this result as normal/abnormal. ALT (test code = 1742-6) 15 U/L See_Comment [Automated messa ge] The system which generated this result transmitted reference range: 5-50 U/L. The reference range was not used to interpret this result as normal/abnormal. SODIUM (test code = 2951-2) 141 MEQ/L See_Comment [Automated messa ge] The system which generated this result transmitted reference range: 133-146 MEQ/L. The reference range was not used to interpret this result as normal/abnormal. CBC W/AUTO [id number] 00:00:00* Test Item Value Reference Range Interpretation Comme nts NUCLEATED RBCS (test code = 56938-0) 0.0 /100 WBC'S See_Comment [Automated messa ge] The system which generated this result transmitted reference range: 0.0 /100 WBC'S. The reference range was not used to interpret this result as normal/abnormal. ABSOLUTE EOSINOPHILS (test code = 01476-0) 0.18 K/UL See_Comment [Automated messa ge] The system which generated this result transmitted reference range: 0.00-0.50 K/UL. The reference range was not used to interpret this result as normal/abnormal. ABSOLUTE LYMPHOCYTES (test code = 94686-7) 1.10 K/UL See_Comment [Automated messa ge] The system which generated this result transmitted reference range: 1.00-4.00 K/UL. The reference range was not used to interpret this result as normal/abnormal. ABSOLUTE MONOCYTES (test code = 87825-7) 0.62 K/UL See_Comment [Automated messa ge] The system which generated this result transmitted reference range: 0.20-1.00 K/UL. The reference range was not used to interpret this result as normal/abnormal. ABSOLUTE NEUTROPHILS (test code = 11455-1) 3.60 K/UL See_Comment [Automated messa ge] The system which generated this result transmitted reference range: 1.50-7.50 K/UL. The reference range was not used to interpret this result as normal/abnormal. BASOPHILS (test code = 79745-7) 0.4 % EOSINOPHILS (test code = 69181-2) 3.2 % HEMATOCRIT (test code = 77633-8) 44.3 % See_Comment [Automated messa ge] The system which generated this result transmitted reference range: 40.0-51.0 %. The reference range was not used to interpret this result as normal/abnormal. HEMOGLOBIN (test code = 718-7) 15.1 G/DL See_Comment [Automated messa ge] The system which generated this result transmitted reference range: 13.5-17.0 G/DL. The reference range was not used to interpret this result as normal/abnormal. LYMPHOCYTES (test code = 30418-3) 19.8 % MCH (test code = 15280-0) 30.3 PG See_Comment [Automated messa ge] The system which generated this result transmitted reference range: 25.0-33.0 PG. The reference range was not used to interpret this result as normal/abnormal. MCHC (test code = 31266-9) 34.1 G/DL See_Comment [Automated messa ge] The system which generated this result transmitted reference range: 31.0-36.0 G/DL. The reference range was not used to interpret this result as normal/abnormal. MCV (test code = 13353-4) 89.0 fL See_Comment [Automated messa ge] The system which generated this result transmitted reference range: 80.0-99.0 fL. The reference range was not used to interpret this result as normal/abnormal. MONOCYTES (test code = 50811-9) 11.2 % NEUTROPHILS (test code = 88581-1) 64.7 % PLATELET COUNT (test code = 33340-6) 223 K/UL See_Comment [Automated messa ge] The system which generated this result transmitted reference range: 130-400 K/UL. The reference range was not used to interpret this result as normal/abnormal. RBC (test code = 94382-5) 4.98 M/UL See_Comment [Automated messa ge] The system which generated this result transmitted reference range: 4.50-6.10 M/UL. The reference range was not used to interpret this result as normal/abnormal. RDW (test code = 79260-9) 12.7 % See_Comment [Automated messa ge] The system which generated this result transmitted reference range: 11.5-15.0 %. The reference range was not used to interpret this result as normal/abnormal. WBC (test code = 61002-2) 5.6 K/UL See_Comment [Automated messa ge] The system which generated this result transmitted reference range: 3.5-11.0 K/UL. The reference range was not used to interpret this result as normal/abnormal. LIPID PANEL WITH REFLEX DIRECT [id number] 00:00:00* Test Item Value Reference Range Interpretation Comme nts CALC LDL CHOL (test code = 03445-8) 83 MG/DL See_Comment [Automated [employer] ge] The system which generated this result transmitted reference range: <100 MG/DL. The reference range was not used to interpret this result as normal/abnormal. CHOLESTEROL (test code = 2093-3) 170 MG/DL See_Comment [Automated [employer] ge] The system which generated this result transmitted reference range: <200 MG/DL. The reference range was not used to interpret this result as normal/abnormal. HDL CHOLESTEROL (test code = 2085-9) 55 MG/DL See_Comment [Automated [employer]] The system which generated this result transmitted reference range: >39 MG/DL. The reference range was not used to interpret this result as normal/abnormal. RISK RATIO LDL/HDL (test code = 11349-1) 1.51 RATIO See_Comment [Automated message] The system which generated this result transmitted reference range: <3.55 RATIO. The reference range was not used to interpret this result as normal/abnormal. TRIGLYCERIDES (test code = 2571-8) 231 MG/DL See_Comment H [Automated [employer]] The system which generated this result transmitted reference range: <150 MG/DL. The reference range was not used to interpret this result as normal/abnormal. BENZODIAZEPINES, SERUM/PLASMA, [id number] 00:00:00* Test Item Value Reference Range Interpretation Comme nts 7-AMINOCLONAZEPAM (test code = 33042-5) <5 ng/mL ALPHA-HYDROXYALPRAZOLAM (derrick t code = 26580-6) <5 ng/mL ALPHA-HYDROXYMIDAZOLAM (test code = 64121-1) <20 ng/mL ALPRAZOLAM (test code = 77035-8) <5 ng/mL CHLORDIAZEPOXIDE (test code = 3457-9) <20 ng/mL CLONAZEPAM (test code = 29038-4) <5 ng/mL DIAZEPAM (test code = 09493-2) <5 ng/mL LORAZEPAM (test code = 74290-3) <20 ng/mL MIDAZOLAM (test code = 73942-1) <20 ng/mL NORDIAZEPAM (test code = 83812-8) <20 ng/mL OXAZEPAM (test code = 43963-2) <20 ng/mL TEMAZEPAM (test code = 26428-3) <20 ng/mL COMPREHENSIVE METABOLIC [id number] 00:00:00* Test Item Value Reference Range Interpretation Comme nts ALBUMIN (test code = 1751-7) 4.5 G/DL See_Comment [Automated messa ge] The system which generated this result transmitted reference range: 3.5-5.2 G/DL. The reference range was not used to interpret this result as normal/abnormal. ALKALINE PHOSPHATASE (test code = 6768-6) 106 U/L See_Comment [Automated message] The system which generated this result transmitted reference range: 40-125 U/L. The reference range was not used to interpret this result as normal/abnormal. BILIRUBIN, TOTAL (test code = 1975-2) 0.5 MG/DL See_Comment [Automated message] The system which generated this result transmitted reference range: <=1.2 MG/DL. The reference range was not used to interpret this result as normal/abnormal. BUN (test code = 3094-0) 16 MG/DL See_Comment [Automated messa ge] The system which generated this result transmitted reference range: 8-23 MG/DL. The reference range was not used to interpret this result as normal/abnormal. CALCIUM (test code = 92634-4) 9.9 MG/DL See_Comment [Automated messa ge] The system which generated this result transmitted reference range: 8.5-10.5 MG/DL. The reference range was not used to interpret this result as normal/abnormal. CALC A/G RATIO (test code = 1759-0) 1.6 RATIO See_Comment [Automated messa ge] The system which generated this result transmitted reference range: 1.0-2.6 RATIO. The reference range was not used to interpret this result as normal/abnormal. CALC BUN/CREAT (test code = 3097-3) 18 RATIO See_Comment [Automated messa ge] The system which generated this result transmitted reference range: 6-28 RATIO. The reference range was not used to interpret this result as normal/abnormal. CALC GLOBULIN (test code = 86315-2) 2.8 G/DL See_Comment [Automated messa ge] The system which generated this result transmitted reference range: 1.9-3.7 G/DL. The reference range was not used to interpret this result as normal/abnormal. CARBON DIOXIDE (test code = 1962-8) 27 MEQ/L See_Comment [Automated messa ge] The system which generated this result transmitted reference range: 19-31 MEQ/L. The reference range was not used to interpret this result as normal/abnormal. CHLORIDE (test code = 5-0) 107 MEQ/L See_Comment [Automated messa ge] The system which generated this result transmitted reference range: 95-107 MEQ/L. The reference range was not used to interpret this result as normal/abnormal. CREATININE (test code = 2160-0) 0.89 MG/DL See_Comment [Automated messa ge] The system which generated this result transmitted reference range: 0.80-1.40 MG/DL. The reference range was not used to interpret this result as normal/abnormal. eGFR (2020 CKD-EPI) (test code = 94634-4) 90 ML/MIN/1.73 See_Comment [Automated messa ge] The system which generated this result transmitted reference range: >60 ML/MIN/1.73. The reference range was not used to interpret this result as normal/abnormal. GLUCOSE (test code = 1558-6) 105 MG/DL See_Comment H [Automated messa ge] The system which generated this result transmitted reference range: 70-99 MG/DL. The reference range was not used to interpret this result as normal/abnormal. POTASSIUM (test code = 2823-3) 4.5 MEQ/L See_Comment [Automated messa ge] The system which generated this result transmitted reference range: 3.5-5.4 MEQ/L. The reference range was not used to interpret this result as normal/abnormal. PROTEIN, TOTAL (test code = 2885-2) 7.3 G/DL See_Comment [Automated messa ge] The system which generated this result transmitted reference range: 6.1-8.3 G/DL. The reference range was not used to interpret this result as normal/abnormal. AST (test code = 1920-8) 14 U/L See_Comment [Automated messa ge] The system which generated this result transmitted reference range: 9-50 U/L. The reference range was not used to interpret this result as normal/abnormal. ALT (test code = 1742-6) 16 U/L See_Comment [Automated messa ge] The system which generated this result transmitted reference range: 5-50 U/L. The reference range was not used to interpret this result as normal/abnormal. SODIUM (test code = 2951-2) 145 MEQ/L See_Comment [Automated [employer]] The system which generated this result transmitted reference range: 133-146 MEQ/L. The reference range was not used to interpret this result as normal/abnormal. MRI Knee Left Wo ContMRI Knee Left Wo ContChest Pa And Lat (2 Views)Chest Pa And Lat (2 Views)
--- NOTE | 2023-08-28 12:49 | RAD REPORT ---
EXAM DESCRIPTION: RAD - Knee Left 2 View - 08/28/2023 11:15 am CLINICAL HISTORY: Left knee surgery FINDINGS: Postoperative changes left knee arthroplasty. Prosthesis in good position. No fracture or dislocation
[2023-08-28 12:51] VITALS: BMI 25.6
[2023-08-28] MEDS: CEFAZOLIN 1 GM in NA CHLORIDE 0.9% 50 ML IVPB SCH (13:34)
[2023-08-28] MEDS: ATORVASTATIN 10 MG TAB PO SCH (20:08)
[2023-08-28] MEDS: HYDROCODONE/APAP 7.5/325 MG TAB PO PRN (20:08)
[2023-08-28] MEDS: LORAZEPAM 1 MG TABLET PO PRN (22:42)
[2023-08-29 03:07] VITALS: O2SAT 97
[2023-08-29] MEDS: ENOXAPARIN 30 MG/0.3 ML SQ SCH (05:19)
[2023-08-29 06:10] LABS: Hemoglobin 11.3 g/dL (13.6-17.9)
[2023-08-29] MEDS: CELECOXIB 100 MG CAPSULE PO SCH (07:47)
[2023-08-29 12:18] LABS: Absolute Monocytes 1.2 K/uL (0.1-1.3); Absolute Neutrophil 9.2 K/uL (1.8-8.0); Basophils % 0.1 % (0-1.3); Eosinophils % 0.1 % (0-4.4); Lymphocytes % 8.7 % (15.3-44.8); MCH 30.1 pg (27.0-35.0); MCHC 34.2 g/dL (32.0-36.0); MPV 8.7 fL (7.6-11.3); Monocytes % 10.5 % (3.3-12.3); Neutrophils % 80.6 % (41.7-73.7); Platelets 207 thou/uL (152-406); RBC Red Blood Cell Count 3.98 M/uL (4.33-5.43); Red Cell Distribution Width 14.2 % (12.1-15.2)
[2023-08-29 12:20] LABS: Anion Gap 7.7 mEq/L (5.0-15.0); Potassium 4.7 mEq/L (3.5-5.1)
[2023-08-29 12:26] VITALS: BP 130/61; TEMP 97.9
== END 2023-08-29 13:34 | disposition home health service (06) ==
LOC: OR 06:08 → 4TH 10:51
PROVIDERS: ADMIT Orthopaedic Surgery Sports Medicine; ATTEND Orthopaedic Surgery Sports Medicine
PROC: 0SRD069 Replacement of Left Knee Joint with Oxidized Zirconium on Polyethylene Synthetic Substitute, Cemented, Open Approach (ICD-10-PCS; principal; 2023-08-28 08:00)
DX: M17.12 Unilateral primary osteoarthritis, left knee (principal)
CPT/HCPCS: 85025 ×2; 80048 ×2; 36415 ×3; 85610; 88305; 88311; 85730; 85018 ×2; 85014 ×2; 73560; 97110; 97116 ×2; 97139; 97161; 97530 ×2; 94010; 27447; C1776; J3475; J2704; J1100 ×2; J2001; J1650; J2250; J3010; J0171; J2405; J7120; J0690 ×4; G0378; G0379

== ENCOUNTER 2025-01-29 09:10 | Day surgery (SDC) | payer OTHER, MEDICARE ==
[2025-01-27 09:25] LABS: Absolute Lymphocytes (CBC) 1.0 K/uL (0.7-4.9); Hematocrit 42.2 % (39.6-49.0); Hemoglobin 14.0 g/dL (13.6-17.9); MCH 29.2 pg (27.0-35.0); MCHC 33.1 g/dL (32.0-36.0); MCV 88.1 fL (80-100); MPV 8.4 fL (7.6-11.3); Nucleated RBC Absolute Count 0.0 (0-0); Nucleated Red Blood Cells % 0.0 % (0-0); RBC Red Blood Cell Count 4.79 M/uL (4.33-5.43); White Blood Count 4.20 thou/uL (4.3-10.9)
[2025-01-27 09:35] LABS: PT Prothrombin Time 12.1 SECONDS (10-13.0); PTT, Activated Partial Thromb 32.9 SECONDS (27.2-37.4); Protime INR 1.07
[2025-01-27 09:39] LABS: Anion Gap 6.0 mEq/L (5.0-15.0); BUN Blood Urea Nitrogen 13.0 mg/dL (7-18); Glucose Level 87.0 mg/dL (74-106); Potassium 4.0 mEq/L (3.5-5.1)
--- NOTE | 2025-01-27 13:53 | RAD REPORT ---
EXAMINATION: TWO VIEW CHEST XR CLINICAL INDICATION: Male, 74 years old. [facility] Pre-op pending bursa excision. Hypertension TECHNIQUE: 2 view radiographs of the chest were performed. COMPARISON: 03/06/2023. FINDINGS: The lungs are well inflated and clear. Elevation of the right hemidiaphragm again seen. No pneumothor ax or sizable effusion. The heart is normal in size. Mediastinal contours are unremarkable. IMPRESSION: No acute or significant abnormalities.
[2025-01-29] MEDS: Ringers Lactate 1,000 ML IV ONE (09:38)
[2025-01-29] MEDS ORDERED: FENTANYL CITR 100 MCG/2 ML ONE (11:35)
[2025-01-29] MEDS ORDERED: MIDAZOLAM HCL 2 MG/2 ML INJ ONE (11:35)
[2025-01-29] MEDS ORDERED: LIDOCAINE 1% MPF 5 ML VIAL ONE (11:35)
[2025-01-29] MEDS ORDERED: ONDANSETRON 4 MG/2 ML VIAL ONE (11:35)
[2025-01-29] MEDS ORDERED: KETOROLAC 30 MG/ML INJ ONE (12:22)
[2025-01-29] MEDS: CEFAZOLIN SODIUM 1 GM/VIAL ONE (12:25)
[2025-01-29] MEDS ORDERED: GLYCOPYRROLATE 0.2 MG/ML SYR ONE (12:30)
[2025-01-29] MEDS: BUPIVACAINE 0.25% PF 10 ML VIAL ONE (12:35)
--- NOTE | 2025-01-29 13:22 | P.BOP ---
Preoperative diagnosis: Left olecranon bursitis Postoperative diagnosis: Same Primary procedure: Excision of left olecranon bursa Negative Spotter: NONE,NONE Estimated blood loss: 10 cc Specimen: Left olecranon bursa with culture Findings: See dictation Anesthesia: General Complications: None Implants: None Fluids & blood products: Per anesthesia record Transferred to: Recovery Room Condition: Good
[2025-01-29 13:50] VITALS: O2SAT 97
[2025-01-29 15:13] VITALS: BP 137/76; TEMP 97
--- NOTE | 2025-02-03 08:45 | P.OP ---
Preoperative diagnosis: Left olecranon bursitis Postoperative diagnosis: Same Primary procedure: Excision of left olecranon bursa Anesthesia: General Estimated blood loss: 10 cc Specimen: Left olecranon bursa Findings: See dictation Operative Technique: Indication for procedure: Karel is a 74-year-old male that presented to my clinic with signs and symptoms consistent with olecranon bursitis. Patient failed conservative treatment measures including RICE therapy as well as corticosteroid injection and aspiration. Given his continued symptoms he elected proceed with left olecranon bursa excision. Description for procedure: After informed consent was obtained, the patient was identified in the preoperative holding area. The left upper extremity was marked. Patient was then brought back to the operating room, transferred to the operating table in supine fashion and placed under general anesthesia. The left upper extremity was then prepped and draped in usual sterile fashion. The correct patient and procedure were confirmed and identified. The patient did receive his preoperative prophylactic antibiotics. The left upper extremity was exsanguinated using an Esmarch and the tourniquet was inflated to 250 mmHg. Approximately a 6 cm longitudinal incision was made centered over the olecranon. Dissection was then taken down olecranon bursa which was dissected. The bursa was opened using a 15 blade and cultures were taken. The bursa was excised using Metzenbaums. The bursa was sent to pathology for further evaluation. The wound was then irrigated thoroughly with normal saline. Subcutaneous tissue was approximated using a 2-0 Vicryl. Skin was approximate using a 3-0 nylon. Sterile dressings were applied. Patient was awakened and transferred to PACU in stable condition. Postoperative plan: Patient will be nonweightbearing of his left upper extremity. He may work on range of motion exercises. He will follow-up in 2 weeks for suture removal. Complications: None Implants: None Fluids & blood products: Per anesthesia record Transferred to: Recovery Room Condition: Good
== END 2025-01-29 14:50 | disposition home or self-care (01) ==
LOC: OR 09:10
PROVIDERS: ATTEND Orthopaedic Surgery Sports Medicine
PROC: 0MB40ZZ Excision of Left Elbow Bursa and Ligament, Open Approach (ICD-10-PCS; principal; 2025-01-29 10:45)
DX: M70.22 Olecranon bursitis, left elbow (principal)
CPT/HCPCS: 93005; 87070; 85025; 80048; 36415; 87205; 85610; 88304; 85730; 71046; 24105; J2704; J2003; J3010; J7120; J0690; 87075; J2250; J2405